=== PATIENT | female | born 1975 | race Caucasian/White ===

== ENCOUNTER 2016-08-11 10:46 | Outpatient (CLI) | payer MEDICAID ==
[~2016-08-11] VITALS: Ht 166.4 cm; Wt 99.7 kg
[2016-08-11 12:38] VITALS: Ht 166.4 cm; Wt 99.7 kg
[2016-08-11 12:40] VITALS: BP 135/72; PULSE 84; RESP 18
[2016-08-11] MEDS ORDERED: PRENAT PO (12:44)
[2016-08-11 12:45] LABS: ADD SCAN DIFF NO
[2016-08-11 13:00] LABS: HEMATOCRIT 35.6 % (37.0-47.0); LYMPHOCYTES % 15.2 % (15.0-51.0); MEAN CORPUSCULAR HEMOGLOBIN 30.8 pg (29.0-33.0); MEAN CORPUSCULAR HGB CONC 33.7 g/dl (32.0-37.0); MEAN CORPUSCULAR VOLUME 91.3 fl (82.0-101.0); MEAN PLATELET VOLUME 9.4 fl (7.4-10.4); NEUTROPHILS % 78.5 % (39.0-77.0); PLATELET COUNT 287 10^3/UL (140-415); RED CELL DISTRIBUTION WIDTH 13.7 % (11.5-14.5); WHITE BLOOD COUNT 10.6 10^3/ul (4.8-10.8)
[2016-08-11 13:01] LABS: BASOPHILS % 0.1 % (0.0-2.0); EOSINOPHILS # 0.2 10^3/ul (0.0-0.5); EOSINOPHILS % 1.4 % (0.0-7.0); LYMPHOCYTES # 1.6 10^3/ul (0.8-2.9); MONOCYTE # 0.5 10^3/ul (0.3-0.9); MONOCYTES % 4.6 % (0.0-11.0); NEUTROPHIL # 8.3 10^3/ul (1.6-7.5)
[2016-08-11 13:59] LABS: ADD UMIC NO; UR BILIRUBIN (Dip) NEGATIVE (NEGATIVE); UR BLOOD (Dip) NEGATIVE (NEGATIVE); UR CLARITY CLEAR (CLEAR); UR COLOR YELLOW (YELLOW); UR GLUCOSE (Dip) NEGATIVE (NEGATIVE); UR KETONES (Dip) NEGATIVE (NEGATIVE); UR LEUKOCYTE ESTERASE (Dip) NEGATIVE (NEGATIVE); UR NITRITE (Dip) NEGATIVE (NEGATIVE); UR TOTAL PROTEIN (Dip) NEGATIVE (NEGATIVE); UR UROBILINOGEN (Dip) 0.2 E.U./dL (0.1-1.0)
--- NOTE | 2016-08-11 14:28 | PN ---
Date/Time of Note Date/Time of Note DATE: 08/11/16 TIME: 14:17 OB Subjective Subjective Subjective Patient 3 para 2 at 29 +1 weeks of gestational Chief complaint of suprapubic pain and pelvic pain/pelvic pressure She reports positive movement, no leaking fluid no vaginal bleeding OB Objective Objective Objective NST is reactive Perla none HEENT: WNL Heart: Rhythm Normal Lungs: Clear Abdomen: WNL Extremities: Normal Heart Rate: 140's Accelerations: Accelerations Present Decelerations: No Decelerations Contractions on Admission: None OB Assessment/Plan Other Assessment: Rule out PTL Other plan: CBC & UA WNL OB ultrasound and cervical length Biophysical profile 8 out of 8 ONEIL 13.7 Estimated weight 1398 g Cervix 4.4 cm Discharge patient home Patient should follow up with OB in 2-3 days TOPHER ROBERTS MD Aug 11, 2016 14:27
--- NOTE | 2016-08-11 14:38 | RADRPT ---
PROCEDURE: OB ultrasound for biophysical profile CLINICAL INDICATION: labor. TECHNIQUE: Multiple sonographic images of the pelvis were obtained. Transabdominal view of the gr avid uterus are available for review. The images were reviewed on a PACS workstation. COMPARISON: Pelvic ultrasound 06/19/2016 FINDINGS: breathing movement = 2/2 tone = 2/2 motion = 2/2 ONEIL = 2/2 ONEIL = 13.7 cm Single live intrauterine with cardiac activity. heart rate equals 148 beats p er minute. Presentation is transverse maternal right. The placenta is posterior, grade 1. IMPRESSION: 1. Single viable intrauterine gestation. 2. Biophysical profile = 8/8. 3. ONEIL = 13.7 cm. RPTAT: KK .Javan Gray MD, MD Date Time Electronically viewed and signed by .Javan Gray MD, MD on 08/11/2016 14:38 .B/
--- NOTE | 2016-08-11 14:41 | RADRPT ---
PROCEDURE: US OB limited for size and dates. CLINICAL INDICATION: labor. TECHNIQUE: Multiple sonographic images of the pelvis were obtained. Transabdominal imaging only w as performed. The images were reviewed on a PACS workstation. COMPARISON: OB ultrasound 06/19/2016 FINDINGS: The cervix is closed with a length of 4.4 cm. There is a single viable intrauterine gestation. Cardiac activity is present with 143 beats per min haris. There is a transverse maternal right presentation. Measurements were made in order to determine age. The results are as follows: BPD = 7.1 cm HC = 26.5 cm AC = 26.2 cm FL = 5.4 .cm Estimated gestational age of approximately 29 weeks 1 day +/ - 2 weeks 0 days by ultrasound evaluat ion. The estimated date of delivery is 10/26/2016 by ultrasound evaluation. The EFW = 1398 g +/- 209.8 g. The placenta is posterior. IMPRESSION: 1. Single viable intrauterine gestation of approximately 29 weeks 1 day with estimated date of deli very of 10/26/2016 by ultrasound evaluation.. 2. The estimated date of delivery is 1398 g (49%). 3. Closed cervix with estimated length of 4.4 cm. RPTAT: KK .Javan Gray MD, Date Time Electronically viewed and signed by .Javan Gray MD, MD on 08/11/2016 14:40 .B/
--- NOTE | 2016-08-11 15:45 | TRIAGE ---
OB Triage Datetime Report Generated by CPN: 08/11/2016 15:45 Datetime: 08/11/2016 15:08 Stage of : OB Triage Labor Evaluation Frequency: NONE Monitor Mode: External Heart Rate FHR Baseline Rate: 135 Monitor Mode: External US Variability: Moderate 6-25 bpm Accelerations: 15X15 Decelerations: None Pain Assessment Pain Scale: 0 Pain Presence: None/Denies Pain Goal: 0 Pain Assessment Comments: STATES PAIN HAS STOPPED WITH REST-STATES PAIN DID STOP DURING THE NIGHT Vaginal Exam Membrane Status: Intact Datetime: 08/11/2016 15:01 Stage of : OB Triage Datetime: 08/11/2016 14:20 Stage of : OB Triage Labor Evaluation Frequency: NONE Monitor Mode: External Heart Rate FHR Baseline Rate: 135 Monitor Mode: External US Variability: Moderate 6-25 bpm Decelerations: None Vaginal Exam Membrane Status: Intact Datetime: 08/11/2016 14:12 Maternal Assessment Level of Consciousness: Fully Conscious DTR's/Clonus: DTRs 2+ Headache: Denies Blurred Vision: No Nausea/Vomiting: Denies RUQ Epigastric Pain: Denies Facial Edema: None Labor Evaluation Frequency: NONE Monitor Mode: External US Comments: OB SCAN COMPLETE-MONITORS REAPPLIED Pain Presence: None/Denies Pain Assessment Comments: PT STATES SHE NO LONGER HAS PAIN Vaginal Exam Membrane Status: Intact Datetime: 08/11/2016 13:56 Stage of : OB Triage Datetime: 08/11/2016 13:41 Comments: MONITOR OFF FOR US Datetime: 08/11/2016 13:36 Labor Evaluation Frequency: NONE Monitor Mode: External Heart Rate FHR Baseline Rate: 140 Monitor Mode: External US Variability: Moderate 6-25 bpm Decelerations: None Pain Presence: None/Denies Datetime: 08/11/2016 12:54 Stage of : OB Triage Labor Evaluation Frequency: NONE Monitor Mode: External Heart Rate FHR Baseline Rate: 140 Monitor Mode: External US Variability: Moderate 6-25 bpm Accelerations: 15X15 Decelerations: None Pain Assessment Pain Scale: 3 Pain Presence: Constant Pain Type: Pressure Pain Location: Perineum (Annotations: SUPRAPUBIC) Pain Goal: 0 Datetime: 08/11/2016 12:00 Stage of : OB Triage Labor Evaluation Frequency: NONE Monitor Mode: External Heart Rate FHR Baseline Rate: 140 Monitor Mode: External US Variability: Moderate 6-25 bpm Accelerations: 10X10 Decelerations: None Datetime: 08/11/2016 11:12 Stage of : OB Triage Assessment Type: Triage Maternal Assessment Level of Consciousness: Fully Conscious DTR's/Clonus: DTRs 2+; No Clonus Headache: Denies Blurred Vision: No Respiratory Effort: Unlabored; Regular Rhythm; Equal Expansion Breath Sounds, Left: Clear and Equal Breath Sounds, Right: Clear and Equal Nausea/Vomiting: Denies RUQ Epigastric Pain: Denies Lower Extremities Edema: None Degree: None Upper Extremities Edema: None Degree: None Facial Edema: None Temperature Route: Oral Fall Risk Assessment History of Falling: (0) No Secondary Diagnosis: (0) No Ambulatory Aid: (0) Bedrest/Nurse Assist IV Therapy: (0) No Gait: (0) Normal/Bedrest/Immobile Mental Status: (0) Oriented to Own Ability Fall Score: 0 Fall Risk Score Definition: No Risk: No action required Labor Evaluation Frequency: X 1 Monitor Mode: External Duration (sec)2399: 30 Quality: Mild Contraction Comments: PT DENIES FEELING UC Heart Rate FHR Baseline Rate: 130 Monitor Mode: External US Variability: Moderate 6-25 bpm Accelerations: 10X10 Decelerations: None Pain Assessment Pain Scale: 7 Pain Presence: Constant Pain Type: Pressure Pain Location: Abdomen; Perineum; Other (Annotations: SUPRAPUBIC) Pain Goal: 0 Vaginal Exam Membrane Status: Intact Datetime: 08/11/2016 11:10 EGA: 29.1 Time Provider Notified: 08/11/2016 11:40 Datetime: 08/11/2016 11:01 Heart Rate FHR Baseline Rate: 138 Monitor Mode: External US Datetime: 08/11/2016 11:00 Stage of : OB Triage Datetime: 08/11/2016 10:58 Monitor Mode: External Datetime: 08/11/2016 10:55 Stage of : OB Triage Time of Arrival: 08/11/2016 10:55 Arrived By: Ambulatory Arrived From: Home Movement: Present Contractions: Denies/Absent Rupture of Membranes: Denies Vaginal Bleeding: None Vaginal Discharge: Denies Recent Sexual Intercouse: Denies Abdominal Trauma: Not Applicable Patient Complaints: Other Additional Patient Complaints: SUPRAPUBIC _ PERINEAL PRESSURE X 3 DAYS WITH INCREASED FREQUENCY OF URINATIONSTATES AFTER VOIDING SHE STILL FEELS PRESSURE;HX DELIVERY X 2 BOTH BY SEC TION;STATES IN HER PERINEAL REGION IT FEELS LIKE 2 WIRES ARE THERE GIVING HER SHOCKS-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
== END 2016-08-11 15:20 | disposition home or self-care (01) ==
LOC: OBT 10:46 → L-D 10:47 → OBT 15:20
PROVIDERS: ATTEND Obstetrics & Gynecology
DX: O26.893 Other specified pregnancy related conditions, third trimester (principal); R10.2 Pelvic and perineal pain; O09.523 Supervision of elderly multigravida, third trimester; Z3A.29 29 weeks gestation of pregnancy
CPT/HCPCS: 36415; 76815; 76817; 76818; 81003; 85025; Z7500; G0463

== ENCOUNTER 2016-09-30 21:03 | Inpatient (IN) | payer MEDICAID ==
[~2016-09-30] VITALS: Ht 167.6 cm; Wt 102.8 kg
[~2016-09-30 21:03] MED LIST: PRENAT PO
[2016-09-30 21:15] VITALS: BP 129/60; PULSE 91; RESP 18; Ht 167.6 cm; Wt 102.8 kg
--- NOTE | 2016-09-30 22:34 | HP ---
Date/Time of Note Date/Time of Note DATE: 09/30/16 TIME: 22:31 OB - History Hx of Present Chief Complaint: contractions Estimated Due Date: Oct 26, 2016 : 5 Para: 2 Spontaneous : 2 Therapeutic : 0 Care: Good Care Ultrasounds: Normal mid trimester US Obstetrical Complications: None Medical Complications: None Past Family/Social History * Past Medical, Surgical, Family and Obstetric Histories reviewed from chart. OB Admission Exam Vital Signs Vital Signs Vital Signs Date Time Temp Pulse Resp B/P Pulse Ox O2 Delivery O2 Flow Rate FiO2 09/30/16 21:15 97.7 91 18 129/60 Room Air Physical Exam HEENT: WNL Heart: Rhythm Normal Lungs: Clear Abdomen: WNL Extremities: Normal Cervical Dilatation: None Membranes: Intact Heart Rate: 120's Accelerations: Accelerations Present Decelerations: No Decelerations Varibility: Moderate OB Assessment/Plan Reason for admission: labor Plan: Other Other plan: IV magnesium sulfate IM betamethasone URSULA DOMINGUEZ MD Sep 30, 2016 22:34
[2016-09-30] MEDS ORDERED: MAGNESIUM SULFATE 4 GM/100 ML 100 ML IV ONE (23:00)
[2016-09-30] MEDS ORDERED: AL HYDROX/MG HYDROX/SIMETH 30 ML CUP PO PRN (23:00)
[2016-09-30] MEDS ORDERED: ACETAMINOPHEN 325 MG TAB PO PRN (23:00)
[2016-09-30] MEDS: LACTATED RINGER'S 1,000 ML IV SCH (23:04)
[2016-09-30 23:11] LABS: ADD SCAN DIFF NO
[2016-09-30 23:14] LABS: BASOPHILS % 0.2 % (0.0-2.0); EOSINOPHILS # 0.4 10^3/ul (0.0-0.5); EOSINOPHILS % 3.9 % (0.0-7.0); HEMATOCRIT 35.6 % (37.0-47.0); HEMOGLOBIN 12.5 g/dl (12.0-16.0); LYMPHOCYTES % 17.8 % (15.0-51.0); MEAN CORPUSCULAR HEMOGLOBIN 31.7 pg (29.0-33.0); MEAN CORPUSCULAR HGB CONC 35.1 g/dl (32.0-37.0); MEAN CORPUSCULAR VOLUME 90.4 fl (82.0-101.0); MEAN PLATELET VOLUME 9.4 fl (7.4-10.4); MONOCYTE # 0.8 10^3/ul (0.3-0.9); MONOCYTES % 6.7 % (0.0-11.0); NEUTROPHIL # 8.1 10^3/ul (1.6-7.5); PLATELET COUNT 295 10^3/UL (140-415); RED BLOOD COUNT 3.94 10^6/ul (4.20-5.40); RED CELL DISTRIBUTION WIDTH 13.1 % (11.5-14.5); WHITE BLOOD COUNT 11.3 10^3/ul (4.8-10.8)
[2016-09-30 23:43] LABS: INR 0.95; PARTIAL THROMBOPLASTIN TIME 28.8 Sec (25.0-35.0); PROTIME 12.7 Sec (12.2-14.2)
[2016-09-30] MEDS: MAGNESIUM SULFATE 20 GM/500 ML 500 ML IV SCH (23:59)
[2016-10-01 00:02] LABS: ADD UMIC NO; UR BILIRUBIN (Dip) NEGATIVE (NEGATIVE); UR BLOOD (Dip) NEGATIVE (NEGATIVE); UR CLARITY CLEAR (CLEAR); UR COLOR LT. YELLOW (YELLOW); UR GLUCOSE (Dip) NEGATIVE (NEGATIVE); UR KETONES (Dip) NEGATIVE (NEGATIVE); UR LEUKOCYTE ESTERASE (Dip) NEGATIVE (NEGATIVE); UR NITRITE (Dip) NEGATIVE (NEGATIVE); UR TOTAL PROTEIN (Dip) NEGATIVE (NEGATIVE); UR UROBILINOGEN (Dip) 0.2 E.U./dL (0.1-1.0)
[2016-10-01] MEDS: BETAMET NA PHOS/AC(6 MG/ML) 5ML INJ IM SCH (00:58)
--- NOTE | 2016-10-01 01:21 | TRIAGE ---
OB Triage Datetime Report Generated by CPN: 10/01/2016 01:21 Datetime: 10/01/2016 00:27 Stage of : Antepartum Assessment Type: Ongoing Assessment Maternal Assessment Level of Consciousness: Fully Conscious DTR's/Clonus: DTRs 2+; No Clonus Headache: Denies Blurred Vision: No Respiratory Effort: Unlabored; Regular Rhythm; Equal Expansion Breath Sounds, Left: Clear and Equal Breath Sounds, Right: Clear and Equal Nausea/Vomiting: Denies RUQ Epigastric Pain: Denies Lower Extremities Edema: None Degree: None Upper Extremities Edema: None Degree: None Facial Edema: None Temperature Route: Oral Fall Risk Assessment History of Falling: (0) No Secondary Diagnosis: (0) No Ambulatory Aid: (0) Bedrest/Nurse Assist IV Therapy: (0) No Gait: (0) Normal/Bedrest/Immobile Mental Status: (0) Oriented to Own Ability Fall Score: 0 Fall Risk Score Definition: No Risk: No action required Pain Presence: None/Denies Datetime: 10/01/2016 00:03 Labor Evaluation Frequency: irregular Monitor Mode: External Duration (sec)2399: 50-70 Quality: Mild Pattern: Normal: <= 5 Contractions in 10 Minutes Resting Tone [place]: Relaxed Heart Rate FHR Baseline Rate: 135 Monitor Mode: External US FHR Baseline Changes: No Baseline Change Variability: Moderate 6-25 bpm Accelerations: 15X15 Decelerations: None Category: Category I Datetime: 09/30/2016 23:45 Time of Arrival: 09/30/2016 23:00 EGA: 36.2 Arrived By: Ambulatory Arrived From: Other Unit in Hospital Datetime: 09/30/2016 23:30 Labor Evaluation Frequency: irregular Monitor Mode: External Quality: Mild Pattern: Normal: <= 5 Contractions in 10 Minutes Resting Tone [place]: Relaxed Heart Rate FHR Baseline Rate: 135 Monitor Mode: External US FHR Baseline Changes: No Baseline Change Variability: Moderate 6-25 bpm Accelerations: 15X15 Decelerations: None Category: Category I Datetime: 09/30/2016 22:05 Labor Evaluation Frequency: 2-3 Monitor Mode: External Duration (sec)2399: 60-90 Quality: Mild Pattern: Normal: <= 5 Contractions in 10 Minutes Resting Tone [place]: Relaxed Heart Rate FHR Baseline Rate: 145 Monitor Mode: External US FHR Baseline Changes: No Baseline Change Variability: Moderate 6-25 bpm Accelerations: 15X15 Decelerations: None Category: Category I Datetime: 09/30/2016 21:26 Vaginal Exam Dilatation (cms): 0.0 Effacement (%): 0 Station: -4 Exam By: Stephon Vaginal Bleeding: None Cervix, Consistency: Firm Cervix, Position: Posterior Datetime: 09/30/2016 21:21 Stage of : OB Triage Time of Arrival: 09/30/2016 20:55 EGA: 36.2 Chief Complaint: uc's since 729 and back pain Movement: Present Contractions: Irregular Time Contractions Began: 09/30/2016 07:30 Contractions: q 5 min Rupture of Membranes: Denies Vaginal Bleeding: None Vaginal Discharge: Denies Recent Sexual Intercouse: Denies Abdominal Trauma: Not Applicable Patient Complaints: Contractions Time Provider Notified: 10/01/2016 21:30 Provider Notified: Dr Cifuentes Initial Plan: EFM,SVE Maternal Assessment Level of Consciousness: Fully Conscious DTR's/Clonus: DTRs 2+; No Clonus Headache: Denies Blurred Vision: No Respiratory Effort: Unlabored; Regular Rhythm; Equal Expansion Breath Sounds, Left: Clear and Equal Breath Sounds, Right: Clear and Equal Nausea/Vomiting: Denies RUQ Epigastric Pain: Denies Facial Edema: None Temperature Route: Axillary Fall Risk Assessment History of Falling: (0) No Secondary Diagnosis: (0) No Ambulatory Aid: (0) Bedrest/Nurse Assist IV Therapy: (0) No Gait: (0) Normal/Bedrest/Immobile Mental Status: (0) Oriented to Own Ability Fall Score: 0 Fall Risk Score Definition: No Risk: No action required Datetime: 09/30/2016 21:12 Labor Evaluation Frequency: x1 Monitor Mode: External Duration (sec)2399: 70 Quality: Mild Pattern: Normal: <= 5 Contractions in 10 Minutes Resting Tone [place]: Relaxed Heart Rate FHR Baseline Rate: 155 Monitor Mode: External US FHR Baseline Changes: No Baseline Change Variability: Moderate 6-25 bpm Accelerations: 15X15 Decelerations: None Category: Category I Pain Assessment Pain Scale: 8 Pain Presence: Intermittent Pain Type: Contraction Pain Location: Abdomen; Back Datetime: 08/11/2016 15:20 Stage of : OB Triage Time of Arrival: 09/30/2016 20:55 EGA: 36.2 Arrived By: Ambulatory Arrived From: Home Chief Complaint: uc's since 729 and back pain Movement: Present Contractions: Irregular Contractions: 5 minutes Rupture of Membranes: Denies Vaginal Bleeding: None Vaginal Discharge: Denies Recent Sexual Intercouse: Denies Abdominal Trauma: Not Applicable Patient Complaints: Contractions Datetime: 08/11/2016 11:12 Fall Score: 0 Fall Risk Score Definition: No Risk: No action required Datetime: 08/11/2016 11:10 EGA: 29.1
[2016-10-01] MEDS: MULTIVIT/MIN/FOLATE/IRON/PREN TAB PO SCH (08:59)
[2016-10-01] MEDS: LACTATED RINGER'S 1,000 ML IV SCH ×2 (09:00→22:39)
[2016-10-01] MEDS: MAGNESIUM SULFATE 20 GM/500 ML 500 ML IV SCH ×2 (09:04→19:30)
--- NOTE | 2016-10-01 14:50 | PN ---
Date/Time of Note Date/Time of Note DATE: 10/01/16 TIME: 14:47 OB Subjective Subjective Subjective Patient denies any vaginal bleeding, leaking of fluid. She reports 1-2 out of 10 cramps. Denies any other complaints. Reports good movement. OB Objective Objective Objective General appearance: Alert and oriented 4 patient does not appear to be any acute distress. Abdomen: Soft, gravid, fundal height consistent with gestational age NST: Category 1 Occasional rare contractions seen on the monitor Extremities: No calf tenderness, no click 1+ bilateral lower extremity edema, SCDs are in place. Hematology - 72 Hrs Test 09/30/16 22:56 White Blood Count 11.310^3/ul (4.8-10.8) H Red Blood Count 3.9410^6/ul (4.20-5.40) L Hemoglobin 12.5g/dl (12.0-16.0) Hematocrit 35.6% (37.0-47.0) L Mean Corpuscular Volume 90.4fl (82.0-101.0) Mean Corpuscular Hemoglobin 31.7pg (29.0-33.0) Mean Corpuscular Hemoglobin Concent 35.1g/dl (32.0-37.0) Red Cell Distribution Width 13.1% (11.5-14.5) Platelet Count 54379^3/UL (140-415) Mean Platelet Volume 9.4fl (7.4-10.4) Neutrophils % 71.0% (39.0-77.0) Lymphocytes % 17.8% (15.0-51.0) Monocytes % 6.7% (0.0-11.0) Eosinophils % 3.9% (0.0-7.0) Basophils % 0.2% (0.0-2.0) Nucleated Red Blood Cells % 0.0/100WBC (0.0-0.0) Neutrophils # 8.110^3/ul (1.6-7.5) H Lymphocytes # 2.010^3/ul (0.8-2.9) Monocytes # 0.810^3/ul (0.3-0.9) Eosinophils # 0.410^3/ul (0.0-0.5) Basophils # 0.010^3/ul (0.0-0.1) Nucleated Red Blood Cells # 0.010^3/ul (0.0-0.0) Chemistry Test 10/01/16 06:11 10/01/16 13:19 Magnesium Level 4.6mg/dl (1.7-2.5) H 5.1mg/dl (1.7-2.5) *H OB Assessment/Plan Other Assessment: Hospital day #2 Admitted for contractions IUP at 36 and 1 day History of section 2 Status post steroid 1 dose<24 hour. Due for second dose after midnight On magnesium for tocolysis Doing well No evidence of mag toxicity Mag level within normal limits Normal patellar reflexes Plan To receive second dose of steroid Wean her off after second dose of steroid Expectant management VIVIAN CAREY MD Oct 01, 2016 14:50
[2016-10-02] MEDS: BETAMET NA PHOS/AC(6 MG/ML) 5ML INJ IM SCH (00:57)
[2016-10-02] MEDS: MAGNESIUM SULFATE 20 GM/500 ML 500 ML IV SCH ×2 (05:43→15:30)
[2016-10-02] MEDS: MULTIVIT/MIN/FOLATE/IRON/PREN TAB PO SCH (09:09)
[2016-10-02] MEDS: LACTATED RINGER'S 1,000 ML IV SCH (09:10)
--- NOTE | 2016-10-02 23:52 | DS ---
Date/Time of Note Date/Time of Note DATE: 10/02/16 TIME: 23:48 Obstetrical Discharge Record Final Diagnosis Final Diagnosis: not delivered Other Final Diagnosis IUP 36w4d s/p x2 betamethasone s/p magnesium sulfate in one hr will be done PTL resolved Complications Labor Augmentation: No Induction: No Tocolytics: Magnesium Sulfate Rupture of Membranes: No Condition on Discharge Physical Assessment Last Vitals: VSS aferile EFM no uterine activities Voiding: Yes Bowel Movement: Yes Breast: Soft, non-tender Calf Tenderness: No Patient Condition: Stable DENISE GARG MD Oct 02, 2016 23:52
--- NOTE | 2016-10-02 23:55 | PD.PPDC ---
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
[2016-10-03] MEDS: LACTATED RINGER'S 1,000 ML IV SCH (04:27)
--- NOTE | 2016-10-03 08:57 | RADRPT ---
PROCEDURE: OB ultrasound for biophysical profile CLINICAL INDICATION: Deceleration TECHNIQUE: Multiple sonographic images of the pelvis were obtained. Transabdominal views of the g ravid uterus are available for review. The images were reviewed on a PACS workstation. COMPARISON: None FINDINGS: breathing movement = 2/2 tone = 2/2 motion = 2/2 ONEIL = 2/2 ONEIL = 15.1 cm Single live intrauterine with cardiac activity of 134 bpm. position is cephal ic. The placenta is posterior. IMPRESSION: 1. Single live intrauterine gestation. 2. Biophysical profile = 8/8. 3. ONEIL = 15.1 cm. RPTAT: HH .Nhung Jain MD, MD Date Time Electronically viewed and signed by .Nhung Jain MD, on 10/03/2016 08:57 .G/
[2016-10-03] MEDS: MULTIVIT/MIN/FOLATE/IRON/PREN TAB PO SCH (09:51)
--- NOTE | 2016-10-03 10:21 | QN ---
Documentation Comment Pt. doing well vss heart tracing category 1 s/p beta methasone and magnesium no change in cervix. BPP today due to variable decleration and d/c home SHARON WAGGONER MD Oct 03, 2016 10:21
== END 2016-10-03 10:10 | disposition home or self-care (01) | DRG 780 ==
LOC: OBT 21:03 → L-D 21:04 → OBT 22:05 → L-D 22:05 → OBG 10-01 00:18
PROVIDERS: ADMIT Obstetrics & Gynecology; ATTEND Obstetrics & Gynecology
DX: O47.03 False labor before 37 completed weeks of gestation, third trimester (principal); Z3A.36 36 weeks gestation of pregnancy
CPT/HCPCS: 36415; 76818; 81003; 83735; 85025; 85610; 85730; 86850; 86900; 86901; 87086; 96360; 96365; G0463; J0702; J3475; J7120

== ENCOUNTER 2016-10-04 23:00 | Outpatient (CLI) | payer MEDICAID ==
[~2016-10-04] VITALS: Ht 167.6 cm; Wt 104.7 kg
[2016-10-05 02:07] VITALS: Ht 167.6 cm; Wt 104.7 kg
--- NOTE | 2016-10-05 02:07 | PN ---
Triage Information Date/Time 10/05/16, 1:30am Weeks of Gestation 37 wks : 5 Para: 2 Diabetes: none Diabetes management: diet controlled Hypertention: none Objective Heart Rate: 130's Contractions: >10 Minutes Apart Assessment/Plan 41 yo P2022@ 37 wks, previous c/d x 2, came to r/o labor - reassuring status - 1/long/posterior; not aidan regularly -will recheck in 2hrs, if unchanged, d/c home -sono to check fluid, BPP, placentation BUSHRA TALAMANTES MD Oct 05, 2016 01:40
[2016-10-05 02:09] VITALS: BP 120/65; PULSE 65; RESP 18
--- NOTE | 2016-10-05 02:51 | RADRPT ---
PROCEDURE: OB ultrasound for biophysical profile CLINICAL INDICATION: Contractions. TECHNIQUE: Multiple sonographic images of the gravid uterus performed. The images were reviewed on a PACS workstation. COMPARISON: 10/03/2016 FINDINGS: A single live intrauterine is identified with heart rate of 154 bpm. Fet us is in a cephalic presentation. Placenta is located posteriorly. Biophysical profile: breathing movement = 2/2 tone = 2/2 motion = 2/2 ONEIL = 2/2 ONEIL = 9.6 cm. IMPRESSION: 1. Single live intrauterine gestation. 2. Biophysical profile = 8/8. 3. ONEIL = 9.6 cm. RPTAT: HMVK .Rafi Moy MD, Date Time Electronically viewed and signed by .Rafi Moy MD, on 10/05/2016 02:51 .K/
--- NOTE | 2016-10-05 07:45 | TRIAGE ---
OB Triage Datetime Report Generated by CPN: 10/05/2016 07:44 Datetime: 10/05/2016 04:00 Labor Evaluation Frequency: IRREGULAR Monitor Mode: External Duration (sec)2399: 60-80 Quality: Mild Pattern: Normal: <= 5 Contractions in 10 Minutes Resting Tone [place]: Relaxed Heart Rate FHR Baseline Rate: 145 Monitor Mode: External US FHR Baseline Changes: No Baseline Change Variability: Moderate 6-25 bpm Accelerations: 15X15 Decelerations: None Category: Category I Datetime: 10/05/2016 02:33 Labor Evaluation Frequency: 2-5 Monitor Mode: External Duration (sec)2399: 60-80 Quality: Mild Pattern: Normal: <= 5 Contractions in 10 Minutes Resting Tone [place]: Relaxed Heart Rate FHR Baseline Rate: 145 Monitor Mode: External US FHR Baseline Changes: No Baseline Change Variability: Moderate 6-25 bpm Accelerations: 15X15 Decelerations: None Category: Category I Datetime: 10/05/2016 02:00 Labor Evaluation Frequency: IRREGULAR Monitor Mode: External Duration (sec)2399: 60-120 Quality: Mild Pattern: Normal: <= 5 Contractions in 10 Minutes Resting Tone [place]: Relaxed Heart Rate FHR Baseline Rate: 145 Monitor Mode: External US FHR Baseline Changes: No Baseline Change Variability: Moderate 6-25 bpm Accelerations: 15X15 Decelerations: None Category: Category I Datetime: 10/05/2016 01:00 Labor Evaluation Frequency: IRREGULAR Monitor Mode: External Duration (sec)2399: 60 Quality: Mild Pattern: Normal: <= 5 Contractions in 10 Minutes Resting Tone [place]: Relaxed Heart Rate FHR Baseline Rate: 145 Monitor Mode: External US FHR Baseline Changes: No Baseline Change Variability: Moderate 6-25 bpm Accelerations: 15X15 Decelerations: None Category: Category I Vaginal Exam Dilatation (cms): 1.0 Effacement (%): 50 Station: -3 Exam By: A LIDIA RN Vaginal Bleeding: None Cervix, Consistency: Firm Cervix, Position: Posterior Datetime: 10/05/2016 00:00 Stage of : OB Triage Labor Evaluation Frequency: 0 Monitor Mode: External Heart Rate FHR Baseline Rate: 135 Monitor Mode: External US FHR Baseline Changes: No Baseline Change Variability: Moderate 6-25 bpm Accelerations: 15X15 Decelerations: None Datetime: 10/04/2016 23:00 Stage of : OB Triage Assessment Type: Triage Time of Arrival: 10/04/2016 22:03 EGA: 36.6 Arrived By: Ambulatory Arrived From: Home Chief Complaint: CONTRACTIONS Time Provider Notified: 10/05/2016 00:08 Provider Notified: DR TALAMANTES Initial Plan: CALL MD Shanon Maternal Assessment Level of Consciousness: Fully Conscious DTR's/Clonus: DTRs 2+; No Clonus Headache: Denies Blurred Vision: No Respiratory Effort: Unlabored; Regular Rhythm; Equal Expansion Breath Sounds, Left: Clear and Equal Breath Sounds, Right: Clear and Equal Nausea/Vomiting: Denies RUQ Epigastric Pain: Denies Lower Extremities Edema: None Degree: None Upper Extremities Edema: None Degree: None Facial Edema: None Temperature Route: Oral Fall Risk Assessment History of Falling: (0) No Secondary Diagnosis: (0) No Ambulatory Aid: (0) Bedrest/Nurse Assist IV Therapy: (0) No Gait: (0) Normal/Bedrest/Immobile Mental Status: (0) Oriented to Own Ability Fall Score: 0 Fall Risk Score Definition: No Risk: No action required Monitor Mode: External Monitor Mode: External US Pain Assessment Pain Scale: 6 Pain Presence: Intermittent Pain Type: Contraction Pain Location: Abdomen; Back Datetime: 10/03/2016 10:00 Stage of : Antepartum Datetime: 10/03/2016 09:32 Comments: PT TOOK OFF EFM Datetime: 10/03/2016 08:30 Stage of : Antepartum Labor Evaluation Frequency: 0 Monitor Mode: External Resting Tone [place]: Relaxed Heart Rate FHR Baseline Rate: 135 Monitor Mode: External US Variability: Moderate 6-25 bpm Accelerations: 15X15 Decelerations: None Category: Category I Pain Assessment Pain Scale: 0 Pain Presence: None/Denies Pain Type: N/A Pain Goal: 0 Datetime: 10/03/2016 08:08 Assessment Type: Ongoing Assessment Maternal Assessment Level of Consciousness: Fully Conscious DTR's/Clonus: DTRs 1+ Headache: Denies Blurred Vision: No Respiratory Effort: Unlabored Breath Sounds, Left: Clear and Equal Breath Sounds, Right: Clear and Equal Nausea/Vomiting: Denies RUQ Epigastric Pain: Denies Lower Extremities Edema: None Degree: None Upper Extremities Edema: None Degree: None Facial Edema: None Fall Risk Assessment History of Falling: (0) No Secondary Diagnosis: (0) No Ambulatory Aid: (0) Bedrest/Nurse Assist IV Therapy: (20) Yes Gait: (0) Normal/Bedrest/Immobile Mental Status: (0) Oriented to Own Ability Fall Score: 20 Fall Risk Score Definition: No Risk: No action required Datetime: 10/03/2016 08:00 Stage of : Antepartum Temperature Route: Oral Labor Evaluation Frequency: 0 Monitor Mode: External Resting Tone [place]: Relaxed Heart Rate FHR Baseline Rate: 135 Monitor Mode: External US Variability: Moderate 6-25 bpm Accelerations: 15X15 Decelerations: None Category: Category I Pain Assessment Pain Scale: 0 Pain Presence: None/Denies Pain Type: N/A Pain Goal: 0 Datetime: 10/03/2016 06:49 Stage of : Antepartum Labor Evaluation Frequency: x1 Monitor Mode: External Duration (sec)2399: 60 Quality: Mild Pattern: Normal: <= 5 Contractions in 10 Minutes Resting Tone [place]: Relaxed Heart Rate FHR Baseline Rate: 135 Monitor Mode: External US Variability: Moderate 6-25 bpm Accelerations: 15X15 Decelerations: None Category: Category I Pain Assessment Pain Scale: 0 Pain Presence: None/Denies Pain Type: N/A Pain Goal: 0 Datetime: 10/03/2016 05:53 Stage of : Antepartum Labor Evaluation Frequency: 0 Monitor Mode: External Duration (sec)2399: 0 Pattern: Normal: <= 5 Contractions in 10 Minutes Resting Tone [place]: Relaxed Heart Rate FHR Baseline Rate: 145 Monitor Mode: External US Variability: Moderate 6-25 bpm Accelerations: 15X15 Decelerations: None Category: Category I Datetime: 10/03/2016 05:15 Headache: Denies Blurred Vision: No Facial Edema: None Datetime: 10/03/2016 03:58 Stage of : Antepartum Labor Evaluation Frequency: x1 Monitor Mode: External Duration (sec)2399: 90 Quality: Mild Pattern: Normal: <= 5 Contractions in 10 Minutes Resting Tone [place]: Relaxed Heart Rate FHR Baseline Rate: 145 Monitor Mode: External US Variability: Moderate 6-25 bpm Accelerations: 15X15 Decelerations: Late Datetime: 10/03/2016 03:00 Stage of : Antepartum Labor Evaluation Frequency: x1 Monitor Mode: External Duration (sec)2399: 80 Quality: Mild Pattern: Normal: <= 5 Contractions in 10 Minutes Resting Tone [place]: Relaxed Heart Rate FHR Baseline Rate: 145 Monitor Mode: External US Variability: Moderate 6-25 bpm Accelerations: 15X15 Decelerations: Late Category: Category II Pain Assessment Pain Scale: 0 Pain Presence: None/Denies Pain Type: N/A Pain Goal: 0 Pain Relief Measures: Comfort Measures Datetime: 10/03/2016 02:00 Labor Evaluation Frequency: x1 Monitor Mode: External Duration (sec)2399: 130 Quality: Mild Pattern: Normal: <= 5 Contractions in 10 Minutes Resting Tone [place]: Relaxed Heart Rate FHR Baseline Rate: 140 Monitor Mode: External US Variability: Moderate 6-25 bpm Accelerations: 10X10 Decelerations: None Category: Category I Pain Assessment Pain Scale: 0 Pain Presence: None/Denies Pain Type: N/A Pain Goal: 0 Datetime: 10/03/2016 01:00 Stage of : Antepartum Maternal Assessment Level of Consciousness: Fully Conscious DTR's/Clonus: DTRs 2+; No Clonus Headache: Denies Breath Sounds, Left: Clear and Equal Breath Sounds, Right: Clear and Equal Nausea/Vomiting: Denies RUQ Epigastric Pain: Denies Labor Evaluation Frequency: x1 Monitor Mode: External Duration (sec)2399: 50 Quality: Mild Pattern: Normal: <= 5 Contractions in 10 Minutes Resting Tone [place]: Relaxed Heart Rate FHR Baseline Rate: 140 Monitor Mode: External US Variability: Moderate 6-25 bpm Accelerations: 10X10 Decelerations: None Category: Category I Pain Assessment Pain Scale: 0 Pain Presence: None/Denies Pain Type: N/A Pain Goal: 0 Pain Relief Measures: Comfort Measures Datetime: 10/03/2016 00:00 Stage of : Antepartum Labor Evaluation Frequency: 0 Monitor Mode: External Duration (sec)2399: 0 Pattern: Normal: <= 5 Contractions in 10 Minutes Resting Tone [place]: Relaxed Contraction Comments: uterine irritiability noted. uterus soft upon palpating. Heart Rate FHR Baseline Rate: 135 Monitor Mode: External US Variability: Moderate 6-25 bpm Accelerations: 15X15 Decelerations: None Pain Assessment Pain Scale: 0 Pain Presence: None/Denies Pain Type: N/A Pain Goal: 0 Datetime: 10/02/2016 23:31 Stage of : Antepartum Datetime: 10/02/2016 23:13 Maternal Assessment Level of Consciousness: Fully Conscious DTR's/Clonus: DTRs 2+; No Clonus Headache: Denies Blurred Vision: No Respiratory Effort: Unlabored Breath Sounds, Left: Clear and Equal Breath Sounds, Right: Clear and Equal Nausea/Vomiting: Denies RUQ Epigastric Pain: Denies Facial Edema: None Datetime: 10/02/2016 23:00 Stage of : Antepartum Labor Evaluation Frequency: x1 Monitor Mode: External Duration (sec)2399: 50 Quality: Mild Pattern: Normal: <= 5 Contractions in 10 Minutes Resting Tone [place]: Relaxed Heart Rate FHR Baseline Rate: 135 Monitor Mode: External US Variability: Moderate 6-25 bpm Accelerations: 15X15 Decelerations: None Datetime: 10/02/2016 22:00 Labor Evaluation Frequency: x2 Monitor Mode: External Duration (sec)2399: 50-60 Quality: Mild Pattern: Normal: <= 5 Contractions in 10 Minutes Resting Tone [place]: Relaxed Contraction Comments: uterine irritiability noted. pts denies feeling UC's or cramping. Heart Rate FHR Baseline Rate: 130 Monitor Mode: External US Variability: Moderate 6-25 bpm Accelerations: 15X15 Decelerations: None Category: Category I Pain Assessment Pain Scale: 0 Pain Presence: None/Denies Pain Type: N/A Pain Goal: 0 Datetime: 10/02/2016 21:24 Maternal Assessment Level of Consciousness: Fully Conscious DTR's/Clonus: DTRs 1+; No Clonus Headache: Denies Blurred Vision: No Nausea/Vomiting: Denies RUQ Epigastric Pain: Denies Facial Edema: None Datetime: 10/02/2016 21:23 Contraction Comments: pt's hands resting on toco, informed pt importance of monitoring for UC's an d requested she not place hands or arms directly on toco. Datetime: 10/02/2016 21:00 Stage of : Antepartum Labor Evaluation Frequency: x1 Monitor Mode: External Duration (sec)2399: 70 Quality: Mild Pattern: Normal: <= 5 Contractions in 10 Minutes Resting Tone [place]: Relaxed Heart Rate FHR Baseline Rate: 135 Monitor Mode: External US Variability: Moderate 6-25 bpm Accelerations: 10X10 Decelerations: None Datetime: 10/02/2016 20:00 Labor Evaluation Frequency: 0 Monitor Mode: External Duration (sec)2399: 0 Pattern: Normal: <= 5 Contractions in 10 Minutes Resting Tone [place]: Relaxed Heart Rate FHR Baseline Rate: 130 Monitor Mode: External US Variability: Moderate 6-25 bpm Accelerations: 10X10 Decelerations: None Pain Assessment Pain Scale: 0 Pain Presence: None/Denies Pain Type: N/A Pain Goal: 0 Datetime: 10/02/2016 19:40 Assessment Type: Ongoing Assessment Maternal Assessment Level of Consciousness: Fully Conscious Respiratory Effort: Unlabored Breath Sounds, Left: Clear and Equal Breath Sounds, Right: Clear and Equal Nausea/Vomiting: Denies RUQ Epigastric Pain: Denies Lower Extremities Edema: None Degree: None Upper Extremities Edema: None Degree: None Facial Edema: None Fall Risk Assessment History of Falling: (0) No Secondary Diagnosis: (0) No Ambulatory Aid: (0) Bedrest/Nurse Assist IV Therapy: (20) Yes Gait: (0) Normal/Bedrest/Immobile Mental Status: (0) Oriented to Own Ability Fall Score: 20 Fall Risk Score Definition: No Risk: No action required Datetime: 10/02/2016 19:39 Maternal Assessment Level of Consciousness: Fully Conscious DTR's/Clonus: DTRs 1+; No Clonus Headache: Denies Blurred Vision: No Nausea/Vomiting: Denies RUQ Epigastric Pain: Denies Facial Edema: None Datetime: 10/02/2016 19:00 Labor Evaluation Frequency: 0 Monitor Mode: External Duration (sec)2399: 0 Pattern: Normal: <= 5 Contractions in 10 Minutes Resting Tone [place]: Relaxed Contraction Comments: DENIES FEELING ANY UC'S. ABDOMEN SOFT TO PALPATION Heart Rate FHR Baseline Rate: 130 Monitor Mode: External US FHR Baseline Changes: No Baseline Change Variability: Moderate 6-25 bpm Accelerations: 15X15 Decelerations: None Category: Category I Datetime: 10/02/2016 17:59 Maternal Assessment Level of Consciousness: Fully Conscious DTR's/Clonus: DTRs 1+; No Clonus Headache: Denies Blurred Vision: No Respiratory Effort: Unlabored Breath Sounds, Left: Clear and Equal Breath Sounds, Right: Clear and Equal Nausea/Vomiting: Denies RUQ Epigastric Pain: Denies Facial Edema: None Comments: DIFFICULT TO ADJUST MONITOR. PT SITTING UP IN BED Datetime: 10/02/2016 17:52 Comments: PT SITTING UP IN BED EATING DINNER Datetime: 10/02/2016 17:30 Labor Evaluation Frequency: 0 Monitor Mode: External Duration (sec)2399: 0 Pattern: Normal: <= 5 Contractions in 10 Minutes Resting Tone [place]: Relaxed Heart Rate FHR Baseline Rate: 135 Monitor Mode: External US FHR Baseline Changes: No Baseline Change Variability: Moderate 6-25 bpm Accelerations: 15X15 Decelerations: None Category: Category I Datetime: 10/02/2016 17:00 Labor Evaluation Frequency: 0 Monitor Mode: External Duration (sec)2399: 0 Pattern: Normal: <= 5 Contractions in 10 Minutes Resting Tone [place]: Relaxed Heart Rate FHR Baseline Rate: 135 Monitor Mode: External US FHR Baseline Changes: No Baseline Change Variability: Moderate 6-25 bpm Accelerations: 15X15 Decelerations: None Category: Category I Datetime: 10/02/2016 16:30 Labor Evaluation Frequency: OCCASIONAL Monitor Mode: External Duration (sec)2399: 40-70 Pattern: Normal: <= 5 Contractions in 10 Minutes Contraction Comments: PT MOVING AROUND ALOT. PT DENIES FEELING ANY UC'S. ABDOMEN SOFT TO PALPATIO N Heart Rate FHR Baseline Rate: 135 Monitor Mode: External US Accelerations: 15X15 Comments: PT MOVING AROUND ALOT. SCATTERED CONTACT AT TIMES Datetime: 10/02/2016 15:59 Labor Evaluation Frequency: OCCASIONAL Monitor Mode: External Duration (sec)2399: 60-80 Pattern: Normal: <= 5 Contractions in 10 Minutes Contraction Comments: PT DENIES ANY CONTRACTIONS Heart Rate FHR Baseline Rate: 130 Monitor Mode: External US FHR Baseline Changes: No Baseline Change Variability: Moderate 6-25 bpm Accelerations: 15X15 Decelerations: None Category: Category I Datetime: 10/02/2016 15:30 Labor Evaluation Frequency: 0 Monitor Mode: External Duration (sec)2399: 0 Pattern: Normal: <= 5 Contractions in 10 Minutes Resting Tone [place]: Relaxed Contraction Comments: DENIES FEELING ANY UC'S. ABDOMEN SOFT TO PALPATION Heart Rate FHR Baseline Rate: 125 Monitor Mode: External US FHR Baseline Changes: No Baseline Change Variability: Moderate 6-25 bpm Accelerations: 15X15 Decelerations: None Category: Category I Datetime: 10/02/2016 15:00 Labor Evaluation Frequency: 0 Monitor Mode: External Duration (sec)2399: 0 Pattern: Normal: <= 5 Contractions in 10 Minutes Resting Tone [place]: Relaxed Contraction Comments: DENIES FEELING ANY UC'S. ABDOMEN SOFT TO PALPATION Heart Rate FHR Baseline Rate: 120 Monitor Mode: External US FHR Baseline Changes: No Baseline Change Variability: Moderate 6-25 bpm Accelerations: 15X15 Decelerations: None Category: Category I Datetime: 10/02/2016 13:49 Maternal Assessment Level of Consciousness: Fully Conscious DTR's/Clonus: DTRs 1+; No Clonus Headache: Denies Blurred Vision: No Respiratory Effort: Unlabored Breath Sounds, Left: Clear and Equal Breath Sounds, Right: Clear and Equal Nausea/Vomiting: Denies RUQ Epigastric Pain: Denies Facial Edema: None Datetime: 10/02/2016 13:48 Labor Evaluation Frequency: 0 Monitor Mode: External Duration (sec)2399: 0 Pattern: Normal: <= 5 Contractions in 10 Minutes Contraction Comments: DENIES FEELING ANY UC'S. ABDOMEN SOFT TO PALPAION. SCATTERED IRRITABILITY NOTED. PT MOVES AROUND ALOT AND GETS OOB TO THE BR Heart Rate FHR Baseline Rate: 120 Monitor Mode: External US FHR Baseline Changes: No Baseline Change Variability: Moderate 6-25 bpm Accelerations: 15X15 Decelerations: None Category: Category I Datetime: 10/02/2016 12:32 Labor Evaluation Frequency: 0 Monitor Mode: External Duration (sec)2399: 0 Pattern: Normal: <= 5 Contractions in 10 Minutes Contraction Comments: DENIES ANY UC'S. ABODMEN SOFT TO PALPATION. PT KEEPS MOVING AROUND. Heart Rate FHR Baseline Rate: 130 Monitor Mode: External US FHR Baseline Changes: No Baseline Change Variability: Moderate 6-25 bpm Accelerations: 15X15 Decelerations: None Category: Category I Comments: PT KEEPS MOVING AROUND AND GETTING OOB. CONTINUOUSLY READJUSTING MONITOR Datetime: 10/02/2016 12:00 Breath Sounds, Left: Clear and Equal Breath Sounds, Right: Clear and Equal Pain Presence: None/Denies Pain Type: N/A Datetime: 10/02/2016 11:54 Maternal Assessment Level of Consciousness: Fully Conscious DTR's/Clonus: DTRs 1+; No Clonus Headache: Denies Blurred Vision: No Nausea/Vomiting: Denies RUQ Epigastric Pain: Denies Facial Edema: None Labor Evaluation Frequency: 0 Monitor Mode: External Duration (sec)2399: 0 Pattern: Normal: <= 5 Contractions in 10 Minutes Resting Tone [place]: Relaxed Contraction Comments: NONE NOTED. SOME SCATTERED IRRITABILITY NOTED Heart Rate FHR Baseline Rate: 130 Monitor Mode: External US FHR Baseline Changes: No Baseline Change Variability: Moderate 6-25 bpm Accelerations: 15X15 Decelerations: None Category: Category I Datetime: 10/02/2016 11:00 Labor Evaluation Frequency: 0 Monitor Mode: External Duration (sec)2399: 0 Pattern: Normal: <= 5 Contractions in 10 Minutes Resting Tone [place]: Relaxed Contraction Comments: SOMETIMES IRRITABILITY NOTED. PT MOVES AROUND ALOT IN BED AND GETS UP TO TH E BATHROOM Heart Rate FHR Baseline Rate: 130 Monitor Mode: External US FHR Baseline Changes: No Baseline Change Variability: Moderate 6-25 bpm Accelerations: 15X15 Decelerations: None Category: Category I Datetime: 10/02/2016 10:34 Labor Evaluation Frequency: 2 NOTED Monitor Mode: External Duration (sec)2399: 60-80 Pattern: Normal: <= 5 Contractions in 10 Minutes Resting Tone [place]: Non Relaxed Contraction Comments: DENIES FEELING ANY UC'S Heart Rate FHR Baseline Rate: 135 Monitor Mode: External US FHR Baseline Changes: No Baseline Change Variability: Moderate 6-25 bpm Accelerations: 15X15 Decelerations: None Category: Category I Datetime: 10/02/2016 09:56 Maternal Assessment Level of Consciousness: Fully Conscious DTR's/Clonus: DTRs 1+; No Clonus Headache: Denies Blurred Vision: No Nausea/Vomiting: Denies RUQ Epigastric Pain: Denies Facial Edema: None Labor Evaluation Frequency: 0 Monitor Mode: External Duration (sec)2399: 0 Pattern: Normal: <= 5 Contractions in 10 Minutes Contraction Comments: PT MOVING AROUND. STILL DENIES ANY UC'S. ABDOMEN SOFT TO PALPATION Heart Rate FHR Baseline Rate: 130 Monitor Mode: External US FHR Baseline Changes: No Baseline Change Variability: Moderate 6-25 bpm Accelerations: 15X15 Decelerations: None Category: Category I Datetime: 10/02/2016 09:29 Labor Evaluation Frequency: ONE NOTED IN 30 MIN Monitor Mode: External Duration (sec)2399: 130 Pattern: Normal: <= 5 Contractions in 10 Minutes Resting Tone [place]: Relaxed Contraction Comments: PT DENIES FEELING ANY UC'S. SITTING UP IN BED EATING BREAKFAST. SCATTERED IRRITABILITY NOTED Heart Rate FHR Baseline Rate: 130 Monitor Mode: External US FHR Baseline Changes: No Baseline Change Variability: Moderate 6-25 bpm Accelerations: 15X15 Decelerations: None Category: Category I Datetime: 10/02/2016 08:57 Labor Evaluation Frequency: 0 Monitor Mode: External Duration (sec)2399: 0 Pattern: Normal: <= 5 Contractions in 10 Minutes Resting Tone [place]: Relaxed Heart Rate FHR Baseline Rate: 125 Monitor Mode: External US FHR Baseline Changes: No Baseline Change Variability: Moderate 6-25 bpm Accelerations: 15X15 Decelerations: None Category: Category I Datetime: 10/02/2016 08:29 Labor Evaluation Frequency: 0 Monitor Mode: External Duration (sec)2399: 0 Pattern: Normal: <= 5 Contractions in 10 Minutes Heart Rate FHR Baseline Rate: 120 Comments: DIIFICULT TO MONITOR AT TIMES Datetime: 10/02/2016 07:56 Maternal Assessment Level of Consciousness: Fully Conscious DTR's/Clonus: DTRs 1+; No Clonus Headache: Denies Blurred Vision: No Nausea/Vomiting: Denies RUQ Epigastric Pain: Denies Facial Edema: None Labor Evaluation Frequency: 0 Monitor Mode: External Duration (sec)2399: 0 Pattern: Normal: <= 5 Contractions in 10 Minutes Resting Tone [place]: Relaxed Contraction Comments: DENIES FEELING ANY UC;S. ABDOMEN SOFT TO PALPATION Heart Rate FHR Baseline Rate: 120 Monitor Mode: External US FHR Baseline Changes: No Baseline Change Variability: Moderate 6-25 bpm Accelerations: 15X15 Decelerations: None Category: Category I Datetime: 10/02/2016 07:28 Assessment Type: Ongoing Assessment Maternal Assessment Level of Consciousness: Fully Conscious DTR's/Clonus: DTRs 1+; No Clonus Headache: Denies Blurred Vision: No Respiratory Effort: Unlabored; Regular Rhythm; Equal Expansion Breath Sounds, Left: Clear and Equal Breath Sounds, Right: Clear and Equal Nausea/Vomiting: Denies RUQ Epigastric Pain: Denies Lower Extremities Edema: None Degree: None Upper Extremities Edema: None Degree: None Facial Edema: None Fall Risk Assessment History of Falling: (0) No Secondary Diagnosis: (0) No Ambulatory Aid: (0) Bedrest/Nurse Assist IV Therapy: (20) Yes Gait: (0) Normal/Bedrest/Immobile Mental Status: (0) Oriented to Own Ability Fall Score: 20 Fall Risk Score Definition: No Risk: No action required Datetime: 10/02/2016 07:26 Headache: Denies Blurred Vision: No RUQ Epigastric Pain: Denies Pain Presence: None/Denies Pain Type: N/A Datetime: 10/02/2016 07:00 Stage of : Antepartum Labor Evaluation Frequency: OCC Monitor Mode: External Duration (sec)2399: 60 Quality: Mild Resting Tone [place]: Relaxed Contraction Comments: IRRITABILITY NOTED W/ PT'S MOVEMENT Heart Rate FHR Baseline Rate: 120 Monitor Mode: External US Variability: Moderate 6-25 bpm Accelerations: 15X15 Decelerations: None Category: Category I Datetime: 10/02/2016 06:18 Comments: loss of contact pt changed positions Pain Assessment Pain Scale: 0 Pain Presence: None/Denies Pain Type: N/A Pain Goal: 0 Pain Assessment Comments: PT DENIES FEELING PAIN, UC'S OR CRAMPING Datetime: 10/02/2016 06:00 Stage of : Antepartum Labor Evaluation Frequency: x3 Monitor Mode: External Duration (sec)2399: 40-70 Quality: Mild Resting Tone [place]: Relaxed Contraction Comments: irritability noted Heart Rate FHR Baseline Rate: 125 Monitor Mode: External US Variability: Moderate 6-25 bpm Accelerations: 15X15 Decelerations: Variable Category: Category II Datetime: 10/02/2016 05:41 Assessment Type: Ongoing Assessment Headache: Frontal Datetime: 10/02/2016 05:00 Stage of : Antepartum Labor Evaluation Frequency: IRREG Monitor Mode: External Duration (sec)2399: 50-110 Quality: Mild Resting Tone [place]: Relaxed Contraction Comments: IRRITABILITY NOTED W/ PT'S MOVEMENTS Heart Rate FHR Baseline Rate: 130 Monitor Mode: External US Variability: Moderate 6-25 bpm Accelerations: 15X15 Decelerations: None Category: Category I Datetime: 10/02/2016 04:28 Assessment Type: Ongoing Assessment Maternal Assessment Level of Consciousness: Fully Conscious DTR's/Clonus: DTRs 1+; No Clonus Headache: Denies Blurred Vision: No Nausea/Vomiting: Denies RUQ Epigastric Pain: Denies Lower Extremities Edema: None Degree: None Upper Extremities Edema: None Degree: None Facial Edema: None Datetime: 10/02/2016 04:00 Stage of : Antepartum Labor Evaluation Frequency: IRREG Monitor Mode: External Duration (sec)2399: 40-100 Quality: Mild Resting Tone [place]: Relaxed Contraction Comments: PT DENIES UC'S; IRRITABILITY NOTED W/ PT'S MOVEMENTS Heart Rate FHR Baseline Rate: 130 Monitor Mode: External US Variability: Moderate 6-25 bpm Accelerations: 15X15 Decelerations: None Category: Category I Datetime: 10/02/2016 03:00 Stage of : Antepartum Maternal Assessment Level of Consciousness: Fully Conscious DTR's/Clonus: DTRs 1+; No Clonus Headache: Denies Blurred Vision: No Breath Sounds, Left: Clear and Equal Breath Sounds, Right: Clear and Equal Nausea/Vomiting: Denies RUQ Epigastric Pain: Denies Lower Extremities Edema: None Degree: None Upper Extremities Edema: None Degree: None Facial Edema: None Labor Evaluation Frequency: 0 Monitor Mode: External Resting Tone [place]: Relaxed Contraction Comments: irritability Heart Rate FHR Baseline Rate: 125 Monitor Mode: External US Variability: Moderate 6-25 bpm Accelerations: 15X15 Decelerations: None Category: Category I Datetime: 10/02/2016 02:42 Monitor Mode: Palpation Resting Tone [place]: Relaxed Datetime: 10/02/2016 02:00 Stage of : Antepartum Labor Evaluation Frequency: x1 Monitor Mode: External Duration (sec)2399: 70 Quality: Mild Resting Tone [place]: Relaxed Heart Rate FHR Baseline Rate: 120 Monitor Mode: External US Variability: Moderate 6-25 bpm Accelerations: 15X15 Decelerations: None Category: Category I Datetime: 10/02/2016 01:04 Maternal Assessment Level of Consciousness: Fully Conscious DTR's/Clonus: DTRs 1+; No Clonus Headache: Denies Blurred Vision: No Nausea/Vomiting: Denies RUQ Epigastric Pain: Denies Lower Extremities Edema: None Degree: None Upper Extremities Edema: None Degree: None Facial Edema: None Datetime: 10/02/2016 01:00 Labor Evaluation Frequency: x2 Monitor Mode: External Duration (sec)2399: 60-140 Quality: Mild Resting Tone [place]: Relaxed Contraction Comments: irritability noted Heart Rate FHR Baseline Rate: 125 Monitor Mode: External US Variability: Moderate 6-25 bpm Accelerations: 15X15 Decelerations: None Category: Category I Pain Assessment Pain Scale: 0 Pain Presence: None/Denies Pain Type: N/A Pain Goal: 0 Datetime: 10/02/2016 00:57 Stage of : Antepartum Datetime: 10/02/2016 00:39 Temperature Route: Oral Pain Assessment Pain Scale: 0 Pain Presence: None/Denies Pain Type: N/A Pain Goal: 0 Datetime: 10/02/2016 00:38 Monitor Mode: Palpation Resting Tone [place]: Relaxed Datetime: 10/02/2016 00:00 Labor Evaluation Frequency: x2 Monitor Mode: External Duration (sec)2399: 40-60 Quality: Mild Resting Tone [place]: Relaxed Heart Rate FHR Baseline Rate: 135 Monitor Mode: External US Variability: Moderate 6-25 bpm Accelerations: 10X10 Decelerations: None Category: Category I Pain Presence: None/Denies Pain Type: N/A Datetime: 10/01/2016 23:00 Stage of : Antepartum Labor Evaluation Frequency: X1 Monitor Mode: External Duration (sec)2399: 10 Quality: Mild Resting Tone [place]: Relaxed Heart Rate FHR Baseline Rate: 120 Monitor Mode: External US Variability: Moderate 6-25 bpm Accelerations: 15X15 Decelerations: None Category: Category I Datetime: 10/01/2016 22:58 Maternal Assessment Level of Consciousness: Fully Conscious DTR's/Clonus: DTRs 1+; No Clonus Headache: Denies Blurred Vision: No Breath Sounds, Left: Clear and Equal Breath Sounds, Right: Clear and Equal Nausea/Vomiting: Denies RUQ Epigastric Pain: Denies Lower Extremities Edema: None Degree: None Upper Extremities Edema: None Degree: None Facial Edema: None Datetime: 10/01/2016 22:08 Pain Assessment Pain Scale: 0 Pain Presence: None/Denies Pain Type: N/A Pain Goal: 0 Datetime: 10/01/2016 22:00 Stage of : Antepartum Monitor Mode: External Resting Tone [place]: Relaxed Contraction Comments: IRRITABILITY Heart Rate FHR Baseline Rate: 120 Monitor Mode: External US Variability: Moderate 6-25 bpm Accelerations: 15X15 Decelerations: None Category: Category I Datetime: 10/01/2016 21:00 Stage of : Antepartum Maternal Assessment Level of Consciousness: Fully Conscious DTR's/Clonus: DTRs 1+; No Clonus Headache: Denies Blurred Vision: No Nausea/Vomiting: Denies RUQ Epigastric Pain: Denies Lower Extremities Edema: None Degree: None Upper Extremities Edema: None Degree: None Facial Edema: None Labor Evaluation Frequency: x2 Monitor Mode: External Duration (sec)2399: 30-130 Quality: Mild Resting Tone [place]: Relaxed Heart Rate FHR Baseline Rate: 130 Monitor Mode: External US Variability: Moderate 6-25 bpm Accelerations: 15X15 Decelerations: None Category: Category I Datetime: 10/01/2016 20:21 Comments: loss of contact d/t pt's position Datetime: 10/01/2016 20:00 Stage of : Antepartum Labor Evaluation Frequency: x2 Monitor Mode: External Duration (sec)2399: 70 Quality: Mild Resting Tone [place]: Relaxed Contraction Comments: irritability noted; pt denies UC's Heart Rate FHR Baseline Rate: 130 Monitor Mode: External US Variability: Minimal - Undetectable to <=5 bpm (Annotations: PERIOD OF MODERATE VARIABILITY ) Accelerations: 15X15 Decelerations: None Datetime: 10/01/2016 19:34 Assessment Type: Ongoing Assessment Maternal Assessment Level of Consciousness: Fully Conscious DTR's/Clonus: DTRs 1+; No Clonus Headache: Denies Blurred Vision: No Respiratory Effort: Unlabored; Regular Rhythm; Equal Expansion Breath Sounds, Left: Clear and Equal Breath Sounds, Right: Clear and Equal Nausea/Vomiting: Denies RUQ Epigastric Pain: Denies Lower Extremities Edema: None Degree: None Upper Extremities Edema: None Degree: None Facial Edema: None Temperature Route: Oral Fall Risk Assessment History of Falling: (0) No Secondary Diagnosis: (0) No Ambulatory Aid: (0) Bedrest/Nurse Assist IV Therapy: (20) Yes Gait: (0) Normal/Bedrest/Immobile Mental Status: (0) Oriented to Own Ability Fall Score: 20 Fall Risk Score Definition: No Risk: No action required Pain Assessment Pain Scale: 0 Pain Presence: None/Denies Pain Type: N/A Pain Goal: 0 Datetime: 10/01/2016 19:15 Stage of : Antepartum Datetime: 10/01/2016 19:00 Stage of : Antepartum Maternal Assessment Level of Consciousness: Fully Conscious DTR's/Clonus: DTRs 1+ Headache: Denies Blurred Vision: No Breath Sounds, Left: Clear and Equal; Diminished Breath Sounds, Right: Clear and Equal; Diminished Nausea/Vomiting: Denies RUQ Epigastric Pain: Denies Facial Edema: None Labor Evaluation Frequency: NONE Monitor Mode: External Resting Tone [place]: Relaxed Heart Rate FHR Baseline Rate: 130 Monitor Mode: External US FHR Baseline Changes: No Baseline Change Variability: Moderate 6-25 bpm Accelerations: 15X15 Decelerations: None Category: Category I Pain Assessment Pain Scale: 2 Pain Presence: Intermittent Pain Type: Cramping Pain Location: Abdomen Pain Goal: 3 Datetime: 10/01/2016 18:00 Stage of : Antepartum Maternal Assessment Level of Consciousness: Fully Conscious DTR's/Clonus: DTRs 1+ Headache: Denies Blurred Vision: No Nausea/Vomiting: Denies RUQ Epigastric Pain: Denies Facial Edema: None Comments: PT TOOK TOO LONG TO FINISH HER SHOWER. Datetime: 10/01/2016 17:00 Stage of : Antepartum Maternal Assessment Level of Consciousness: Fully Conscious DTR's/Clonus: DTRs 1+ Headache: Denies Blurred Vision: No Breath Sounds, Left: Clear and Equal; Diminished Breath Sounds, Right: Clear and Equal; Diminished Nausea/Vomiting: Denies RUQ Epigastric Pain: Denies Facial Edema: None Labor Evaluation Frequency: 2 IN AN HOUR Monitor Mode: External Duration (sec)2399: 60-70 Quality: Mild Pattern: Normal: <= 5 Contractions in 10 Minutes Resting Tone [place]: Relaxed Heart Rate FHR Baseline Rate: 130 FHR Baseline Changes: No Baseline Change Variability: Moderate 6-25 bpm Accelerations: 15X15 Decelerations: None Category: Category I Pain Assessment Pain Scale: 2 Pain Presence: Intermittent Pain Type: Cramping; Contraction Pain Location: Abdomen Pain Goal: 3 Pain Relief Measures: Comfort Measures Datetime: 10/01/2016 16:00 Stage of : Antepartum Maternal Assessment Level of Consciousness: Fully Conscious DTR's/Clonus: DTRs 1+ Headache: Denies Blurred Vision: No Breath Sounds, Left: Clear and Equal; Diminished Breath Sounds, Right: Clear and Equal; Diminished Nausea/Vomiting: Denies RUQ Epigastric Pain: Denies Facial Edema: None Labor Evaluation Frequency: 5 IN AN HOUR Monitor Mode: External Duration (sec)2399: 50-80 Quality: Mild Pattern: Normal: <= 5 Contractions in 10 Minutes Resting Tone [place]: Relaxed Heart Rate FHR Baseline Rate: 130 FHR Baseline Changes: No Baseline Change Variability: Moderate 6-25 bpm Accelerations: 15X15 Decelerations: None Category: Category I Pain Assessment Pain Scale: 3 Pain Presence: Intermittent Pain Type: Cramping; Contraction Pain Location: Abdomen Pain Goal: 3 Pain Relief Measures: Comfort Measures Datetime: 10/01/2016 15:00 Stage of : Antepartum Maternal Assessment Level of Consciousness: Fully Conscious DTR's/Clonus: DTRs 1+ Headache: Denies Blurred Vision: No Breath Sounds, Left: Clear and Equal; Diminished Breath Sounds, Right: Clear and Equal; Diminished Nausea/Vomiting: Denies RUQ Epigastric Pain: Denies Facial Edema: None Labor Evaluation Frequency: 3 IN AN HOUR Monitor Mode: External Duration (sec)2399: 50-70 Quality: Mild Pattern: Normal: <= 5 Contractions in 10 Minutes Resting Tone [place]: Relaxed Heart Rate FHR Baseline Rate: 130 FHR Baseline Changes: No Baseline Change Variability: Moderate 6-25 bpm Accelerations: 10X10 Decelerations: None Category: Category I Pain Assessment Pain Scale: 2 Pain Presence: Intermittent Pain Type: Cramping; Contraction Pain Location: Abdomen Pain Goal: 3 Pain Relief Measures: Comfort Measures Datetime: 10/01/2016 14:00 Stage of : Antepartum Maternal Assessment Level of Consciousness: Fully Conscious DTR's/Clonus: DTRs 1+ Headache: Denies Blurred Vision: No Breath Sounds, Left: Clear and Equal; Diminished Breath Sounds, Right: Clear and Equal; Diminished Nausea/Vomiting: Denies RUQ Epigastric Pain: Denies Facial Edema: None Labor Evaluation Frequency: 4 IN AN HOUR Monitor Mode: External Duration (sec)2399: 40-60 Quality: Mild Pattern: Normal: <= 5 Contractions in 10 Minutes Resting Tone [place]: Relaxed Heart Rate FHR Baseline Rate: 140 FHR Baseline Changes: No Baseline Change Variability: Moderate 6-25 bpm Accelerations: 15X15 Decelerations: Variable Category: Category I Pain Assessment Pain Scale: 2 Pain Presence: Intermittent Pain Type: Cramping; Contraction Pain Location: Abdomen Pain Goal: 3 Pain Relief Measures: Comfort Measures Datetime: 10/01/2016 13:00 Stage of : Antepartum Breath Sounds, Left: Clear and Equal; Diminished Breath Sounds, Right: Clear and Equal; Diminished Labor Evaluation Frequency: 3 IN AN HOUR Monitor Mode: External Duration (sec)2399: 50-70 Quality: Mild Pattern: Normal: <= 5 Contractions in 10 Minutes Resting Tone [place]: Relaxed Heart Rate FHR Baseline Rate: 135 FHR Baseline Changes: No Baseline Change Variability: Moderate 6-25 bpm Accelerations: 15X15 Decelerations: None Category: Category I Pain Assessment Pain Scale: 3 Pain Presence: Intermittent Pain Type: Cramping; Contraction Pain Location: Abdomen Pain Goal: 3 Pain Relief Measures: Comfort Measures Datetime: 10/01/2016 12:00 Stage of : Antepartum Maternal Assessment Level of Consciousness: Fully Conscious DTR's/Clonus: DTRs 1+ Headache: Denies Blurred Vision: No Breath Sounds, Left: Clear and Equal; Diminished Breath Sounds, Right: Clear and Equal; Diminished Nausea/Vomiting: Denies RUQ Epigastric Pain: Denies Facial Edema: None Labor Evaluation Frequency: 4 IN AN HOUR Monitor Mode: External Duration (sec)2399: 40-60 Quality: Mild Pattern: Normal: <= 5 Contractions in 10 Minutes Resting Tone [place]: Relaxed Heart Rate FHR Baseline Rate: 140 FHR Baseline Changes: No Baseline Change Variability: Moderate 6-25 bpm Accelerations: 15X15 Decelerations: None Category: Category I Pain Assessment Pain Scale: 3 Pain Presence: Intermittent Pain Type: Cramping; Stabbing Pain Location: Abdomen Pain Goal: 3 Pain Relief Measures: Comfort Measures Datetime: 10/01/2016 11:00 Maternal Assessment Level of Consciousness: Fully Conscious DTR's/Clonus: DTRs 1+ Headache: Denies Blurred Vision: No Breath Sounds, Left: Clear and Equal; Diminished Breath Sounds, Right: Clear and Equal; Diminished Nausea/Vomiting: Denies RUQ Epigastric Pain: Denies Facial Edema: None Labor Evaluation Frequency: 3 IN AN HOUR Monitor Mode: External Duration (sec)2399: 40-60 Quality: Mild Pattern: Normal: <= 5 Contractions in 10 Minutes Resting Tone [place]: Relaxed Heart Rate FHR Baseline Rate: 140 FHR Baseline Changes: No Baseline Change Variability: Moderate 6-25 bpm Accelerations: 10X10 Decelerations: None Category: Category I Pain Assessment Pain Scale: 2 Pain Presence: Intermittent Pain Type: Cramping; Contraction Pain Location: Abdomen Pain Goal: 3 Pain Relief Measures: Comfort Measures Datetime: 10/01/2016 10:00 Stage of : Antepartum Maternal Assessment Level of Consciousness: Fully Conscious DTR's/Clonus: DTRs 1+ Headache: Denies Blurred Vision: No Nausea/Vomiting: Denies RUQ Epigastric Pain: Denies Facial Edema: None Labor Evaluation Frequency: NONE Monitor Mode: External Resting Tone [place]: Relaxed Comments: UNABLE TO GET TRACING PT IS SITTING UP AND EATING BREAKFAST. Pain Assessment Pain Scale: 2 Pain Presence: Intermittent Pain Type: Cramping; Contraction Pain Location: Abdomen Pain Goal: 3 Pain Relief Measures: Comfort Measures Datetime: 10/01/2016 09:00 Stage of : Antepartum Maternal Assessment Level of Consciousness: Fully Conscious DTR's/Clonus: DTRs 1+ Headache: Denies Blurred Vision: No Nausea/Vomiting: Denies RUQ Epigastric Pain: Denies Facial Edema: None Labor Evaluation Frequency: 5 IN AN HOUR Monitor Mode: External Quality: Mild Pattern: Normal: <= 5 Contractions in 10 Minutes Resting Tone [place]: Relaxed Heart Rate FHR Baseline Rate: 135 FHR Baseline Changes: No Baseline Change Variability: Moderate 6-25 bpm Accelerations: 15X15 Decelerations: None Category: Category I Pain Assessment Pain Scale: 2 Pain Presence: Intermittent Pain Type: Cramping; Contraction Pain Location: Abdomen Pain Goal: 3 Pain Relief Measures: Comfort Measures Datetime: 10/01/2016 08:59 Stage of : Antepartum Datetime: 10/01/2016 08:00 Maternal Assessment Level of Consciousness: Fully Conscious DTR's/Clonus: DTRs 1+ Headache: Denies Blurred Vision: No Breath Sounds, Left: Clear and Equal Breath Sounds, Right: Clear and Equal Nausea/Vomiting: Denies RUQ Epigastric Pain: Denies Facial Edema: None Labor Evaluation Frequency: 3 IN AN HOUR Monitor Mode: External Duration (sec)2399: 40-60 Quality: Mild Pattern: Normal: <= 5 Contractions in 10 Minutes Resting Tone [place]: Relaxed Heart Rate FHR Baseline Rate: 135 FHR Baseline Changes: No Baseline Change Variability: Moderate 6-25 bpm Accelerations: 10X10 Decelerations: None Category: Category I Pain Assessment Pain Scale: 2 Pain Presence: Intermittent Pain Type: Cramping; Contraction Pain Location: Abdomen Pain Goal: 3 Pain Relief Measures: Comfort Measures Datetime: 10/01/2016 07:35 Assessment Type: Ongoing Assessment Maternal Assessment Level of Consciousness: Fully Conscious DTR's/Clonus: DTRs 2+; No Clonus Headache: Denies Blurred Vision: No Respiratory Effort: Unlabored; Regular Rhythm; Equal Expansion Breath Sounds, Left: Clear and Equal Breath Sounds, Right: Clear and Equal Nausea/Vomiting: Denies RUQ Epigastric Pain: Denies Lower Extremities Edema: None Degree: None Upper Extremities Edema: None Degree: None Facial Edema: None Fall Risk Assessment History of Falling: (0) No Secondary Diagnosis: (0) No Ambulatory Aid: (0) Bedrest/Nurse Assist IV Therapy: (0) No Gait: (0) Normal/Bedrest/Immobile Mental Status: (0) Oriented to Own Ability Fall Score: 0 Fall Risk Score Definition: No Risk: No action required Datetime: 10/01/2016 07:24 Stage of : Antepartum Datetime: 10/01/2016 07:00 Labor Evaluation Frequency: x1 Monitor Mode: External Duration (sec)2399: 50 Quality: Mild Resting Tone [place]: Relaxed Heart Rate FHR Baseline Rate: 135 Monitor Mode: External US Variability: Moderate 6-25 bpm Accelerations: 10X10 Decelerations: None Category: Category I Pain Presence: None/Denies Datetime: 10/01/2016 06:00 Maternal Assessment Level of Consciousness: Fully Conscious DTR's/Clonus: DTRs 2+ Headache: Denies Blurred Vision: No Respiratory Effort: Unlabored; Regular Rhythm; Equal Expansion Breath Sounds, Left: Clear and Equal Breath Sounds, Right: Clear and Equal Nausea/Vomiting: Denies RUQ Epigastric Pain: Denies Facial Edema: None Labor Evaluation Frequency: x2 Monitor Mode: External Duration (sec)2399: 40-50 Quality: Mild Resting Tone [place]: Relaxed Heart Rate FHR Baseline Rate: 135 Monitor Mode: External US Variability: Moderate 6-25 bpm Accelerations: 10X10 Decelerations: None Category: Category I Pain Presence: None/Denies Pain Type: N/A Datetime: 10/01/2016 05:50 Stage of : Antepartum Datetime: 10/01/2016 05:00 Labor Evaluation Frequency: 0 Monitor Mode: External Resting Tone [place]: Relaxed Heart Rate FHR Baseline Rate: 140 Monitor Mode: External US Variability: Moderate 6-25 bpm Accelerations: 15X15 Decelerations: None Category: Category I Comments: loss of contact at times. Pain Presence: None/Denies Datetime: 10/01/2016 04:00 Labor Evaluation Frequency: x2 Monitor Mode: External Duration (sec)2399: 40-50 Quality: Mild Resting Tone [place]: Relaxed Heart Rate FHR Baseline Rate: 135 Monitor Mode: External US Variability: Moderate 6-25 bpm Accelerations: 10X10 Decelerations: None Category: Category I Pain Presence: None/Denies Pain Type: N/A Datetime: 10/01/2016 02:59 Labor Evaluation Frequency: occasional Monitor Mode: External Duration (sec)2399: 40-50 Quality: Mild Resting Tone [place]: Relaxed Heart Rate FHR Baseline Rate: 140 Monitor Mode: External US Variability: Moderate 6-25 bpm Accelerations: 15X15 Decelerations: None Category: Category I Pain Presence: None/Denies Pain Type: N/A Datetime: 10/01/2016 02:39 Maternal Assessment Level of Consciousness: Fully Conscious DTR's/Clonus: DTRs 2+ Headache: Denies Blurred Vision: No Datetime: 10/01/2016 02:00 Labor Evaluation Frequency: x5 Monitor Mode: External Duration (sec)2399: 40-60 Quality: Mild Resting Tone [place]: Relaxed Heart Rate FHR Baseline Rate: 135 Monitor Mode: External US Variability: Moderate 6-25 bpm Accelerations: 15X15 Decelerations: None Category: Category I Pain Presence: None/Denies Pain Type: N/A Datetime: 10/01/2016 01:00 Labor Evaluation Frequency: IRREGULAR Monitor Mode: External Duration (sec)2399: 40-50 Quality: Mild Resting Tone [place]: Relaxed Contraction Comments: PT DENIES FEELING UC'S. Heart Rate FHR Baseline Rate: 140 Monitor Mode: External US Variability: Moderate 6-25 bpm Accelerations: 15X15 Decelerations: None Category: Category I Pain Presence: None/Denies Datetime: 10/01/2016 00:27 Fall Score: 0 Fall Risk Score Definition: No Risk: No action required Datetime: 09/30/2016 23:45 EGA: 36.2 Datetime: 09/30/2016 23:31 Monitor Mode: External Resting Tone [place]: Relaxed Heart Rate FHR Baseline Rate: 135 Monitor Mode: External US Pain Assessment Pain Scale: 3 Pain Presence: Intermittent Pain Type: Cramping Pain Location: Abdomen Datetime: 09/30/2016 22:05 Stage of : OB Triage Datetime: 09/30/2016 21:29 Stage of : OB Triage Datetime: 09/30/2016 21:21 EGA: 36.2 Fall Score: 0 Fall Risk Score Definition: No Risk: No action required Datetime: 08/11/2016 15:20 EGA: 36.2 Datetime: 08/11/2016 11:12 Fall Score: 0 Fall Risk Score Definition: No Risk: No action required Datetime: 08/11/2016 11:10 EGA: 29.1
--- NOTE | 2016-10-05 07:50 | TRIAGE ---
OB Triage Datetime Report Generated by CPN: 10/05/2016 07:50 Datetime: 10/05/2016 01:20 Stage of : OB Triage Datetime: 10/04/2016 23:00 EGA: 36.6 Fall Score: 0 Fall Risk Score Definition: No Risk: No action required
== END 2016-10-05 05:22 | disposition home or self-care (01) ==
LOC: OBT 23:00 → L-D 10-05 00:39 → OBT 10-05 05:22
PROVIDERS: ATTEND Obstetrics & Gynecology
DX: O24.913 Unspecified diabetes mellitus in pregnancy, third trimester (principal); O62.9 Abnormality of forces of labor, unspecified; Z3A.37 37 weeks gestation of pregnancy
CPT/HCPCS: 76818; Z7500; G0463

== ENCOUNTER 2016-10-12 13:30 | Outpatient (CLI) | payer MEDICAID ==
[2016-10-12 13:53] VITALS: BP 136/70; PULSE 77; RESP 18
--- NOTE | 2016-10-12 15:11 | RADRPT ---
PROCEDURE: OB ultrasound CLINICAL INDICATION: Pelvic pain TECHNIQUE: Multiple transverse and longitudinal OB images of the pelvis were obtained. The images were reviewed on a high-resolution PACS workstation. COMPARISON: 10/05/2016 FINDINGS: A single live intrauterine is seen. The presentation is vertex. The placenta is grade II and posterior in location. No evidence of placenta abruption or previa is seen. The heart rate is 158 beats per minute. The amniotic fluid index is 12.1 cm. movement 2 tone 2 breathing 2 Amniotic fluid 2 IMPRESSION: Biophysical profile of 11/25. RPTAT: HPNM Physician Zoila Date Time Electronically viewed and signed by Physician Zoila on 10/12/2016 15:10 /
--- NOTE | 2016-10-12 15:55 | QN ---
Documentation Comment iup 38 weeks co of ucx vss exam wnl os closed cat I tracing ap oup 38 weeks false labor [facility] JACOBY BORDEN MD Oct 12, 2016 15:55
== END 2016-10-12 16:10 | disposition home or self-care (01) ==
LOC: OBT 13:30 → L-D 13:31 → OBT 16:10
PROVIDERS: ATTEND Obstetrics & Gynecology
DX: O62.9 Abnormality of forces of labor, unspecified (principal); O47.1 False labor at or after 37 completed weeks of gestation; Z3A.38 38 weeks gestation of pregnancy
CPT/HCPCS: 76818; Z7500; G0463

== ENCOUNTER 2016-10-15 15:30 | Inpatient (IN) | payer MEDICAID ==
[~2016-10-15] VITALS: Ht 162.6 cm; Wt 105.4 kg
[2016-10-20 07:02] VITALS: BMI 39.9
[2016-10-20 07:04] VITALS: Ht 162.6 cm; Wt 105.4 kg
[2016-10-20] MEDS ORDERED: CEFAZOLIN 2 GM/50 ML (PMX) 50 ML IV SCH (07:30)
[2016-10-20] MEDS ORDERED: METHYLERGONOVINE 0.2 MG INJ IM PRN ×2 (07:30→21:00)
[2016-10-20] MEDS ORDERED: MISOPROSTOL 200 MCG TAB PR PRN ×2 (07:30→21:00)
[2016-10-20] MEDS ORDERED: CARBOPROST 250 MCG INJ IM PRN ×2 (07:30→21:00)
[2016-10-20] MEDS ORDERED: OXYTOCIN 30 UNITS/LR 500 ML IV PRN ×2 (07:30→21:00)
[2016-10-20] MEDS: LACTATED RINGER'S 1,000 ML IV SCH ×3 (08:07→20:34)
[2016-10-20 08:26] LABS: ADD SCAN DIFF NO
[2016-10-20 08:31] LABS: BASOPHILS % 0.3 % (0.0-2.0); EOSINOPHILS # 0.3 10^3/ul (0.0-0.5); EOSINOPHILS % 2.9 % (0.0-7.0); HEMATOCRIT 37.2 % (37.0-47.0); HEMOGLOBIN 12.8 g/dl (12.0-16.0); LYMPHOCYTES # 1.8 10^3/ul (0.8-2.9); LYMPHOCYTES % 18.9 % (15.0-51.0); MEAN CORPUSCULAR HEMOGLOBIN 31.3 pg (29.0-33.0); MEAN CORPUSCULAR HGB CONC 34.4 g/dl (32.0-37.0); MEAN PLATELET VOLUME 9.7 fl (7.4-10.4); MONOCYTE # 0.6 10^3/ul (0.3-0.9); MONOCYTES % 5.7 % (0.0-11.0); NEUTROPHILS % 71.9 % (39.0-77.0); PLATELET COUNT 266 10^3/UL (140-415); RED BLOOD COUNT 4.09 10^6/ul (4.20-5.40); RED CELL DISTRIBUTION WIDTH 13.1 % (11.5-14.5); WHITE BLOOD COUNT 9.8 10^3/ul (4.8-10.8)
[2016-10-20 08:47] LABS: INR 0.87; PARTIAL THROMBOPLASTIN TIME 27.5 Sec (25.0-35.0); PROTIME 11.8 Sec (12.2-14.2); PT RATIO 0.9
[2016-10-20] MEDS ORDERED: ONDANSETRON 4 MG INJ ONE (14:25)
[2016-10-20] MEDS ORDERED: OXYTOCIN 30 UNITS/LR 500 ML IV ONE (14:25)
[2016-10-20] MEDS ORDERED: EPHEDrine SULFATE 50 MG/5 ML SYG ONE (14:25)
[2016-10-20] MEDS ORDERED: morphine SULFATE/PF (10 MG/10 ML) INJ ONE (14:25)
[2016-10-20] MEDS ORDERED: OXYTOCIN 10 UNIT INJ ONE (14:25)
[2016-10-20] MEDS ORDERED: METOCLOPRAMIDE 10 MG INJ ONE (14:25)
--- NOTE | 2016-10-20 15:24 | HP ---
Date/Time of Note Date/Time of Note DATE: 10/20/16 TIME: 15:23 OB - History Hx of Present Free Text/Dictation term preg. for repeat c/s and BTL Care: Good Care Ultrasounds: Normal mid trimester US Obstetrical Complications: None Past Family/Social History * Past Medical, Surgical, Family and Obstetric Histories reviewed from chart. OB Admission Exam Physical Exam HEENT: WNL Heart: Rhythm Normal Lungs: Clear, Equal Abdomen: WNL Extremities: Normal Reflexes: Normal Cervical Dilatation: None Last 72 hours Lab Results CBC & BMP 10/20/16 08:00 OB Assessment/Plan Reason for admission: section Plan: Section SHARON WAGGONER MD Oct 20, 2016 15:24
--- NOTE | 2016-10-20 15:29 | OPR ---
Operative Report Planned Procedure Free Text/Dictation term preg, repeat c/s and BTL Procedure date Oct 20, 2016 Procedure(s) repeat c/s, lysis of adhesions, bilateral tubal ligaion Performed by: SHARON WAGGONER MD Assisting provider: JACOBY BORDEN MD Anesthesia Type: spinal Procedure Description Under satisfactory spinal anesthesia, the patient was prepped and draped and placed in a supine position, tilted to the left. Pfannenstiel incision was made , carried through the subcutaneous tissue. Bleeders brought under control with electrocautery. Fascia incised to the length of the incision. Rectus muscles from the fascia, divided midline. Peritoneum exposed, entered through a transverse incision. Exploration of abdomen revealed gravid uterus and multiple omental adhesions to the lower uterine segment and fallopian ubes. The adhesions were dissected out and o plain tie was used fo hemostasis. Bladder flap was developed. Transverse incision was made in the lower segment of the uterus. Amniotic sac ruptured. Clear amniotic fluid noted. The baby was delivered cephalically and the nasal oropharyngeal suction was performed. The baby was handed to the team for immediate attention. The placenta was delivered manually intact. Uterine cavity was cleaned with wet sponge and drainage established. Uterus closed in 2 layers using one monocryl in continuous fashion. Peritoneal cavity irrigated with warm saline. Sponge, needle and instrument count reported to be correct. Rectus muscle approximated with one monocryl and the lysis of adhesions hemostasis was confimred again. Fascia closed with one monocryl, and skin closed with larissa. Estimated blood loss 700mL. Post-Procedure Findings: Live Baby [], Apgars [] and [], weight [], position [], [] presentation []cord. Specimen removed: Yes Complications: None Pt Condition post procedure: stable Physician Certification I, the undersigned physician, hereby certify that I have discussed the procedure described in this consent form with this patient (or the patient's legal sales representative publications), including: * The risk and benefits of the procedure; * Any adverse reactions that may reasonably be expected to occur; * Any alternative efficacious methods of treatment which may be medically viable ; * The potential problems that may occur during recuperation; * Potential for blood transfusion and associated risks/benefits; and * Any research or economic interest I may have regarding this treatment. I further certify that the patient/legally responsible person was encouraged to ask question and that all questions were answered. SHARON WAGGONER MD Oct 20, 2016 15:29
[2016-10-20] MEDS: OXYTOCIN 30 UNITS/LR 500 ML IV SCH ×3 (15:32→22:19)
[2016-10-20] MEDS ORDERED: NALOXONE (0.4 MG/ML) INJ IV PRN (16:00)
[2016-10-20] MEDS ORDERED: KETOROLAC 30 MG INJ IV PRN (16:00)
[2016-10-20] MEDS ORDERED: morphine 2 MG INJ IV PRN ×2 (16:00)
[2016-10-20] MEDS ORDERED: ONDANSETRON 4 MG INJ IV PRN (16:00)
[2016-10-20] MEDS ORDERED: EPHEDrine SULFATE 50 MG/5 ML SYG IV PRN (16:00)
[2016-10-20] MEDS ORDERED: HYDROmorphONE 1 MG/ML SYG IV PRN ×2 (16:00)
[2016-10-20] MEDS ORDERED: DIPHENHYDRAMINE 50 MG INJ IV PRN (16:00)
[2016-10-20] MEDS ORDERED: morphine SULFATE/PF (10 MG/10 ML) INJ SPINAL ONE (16:00)
[2016-10-20 20:30] VITALS: BP 125/69; PULSE 69; RESP 18
[2016-10-20] MEDS ORDERED: NA PHOSPHATE/BIPHOS 133 ML ENEMA PR PRN (21:00)
[2016-10-20] MEDS ORDERED: ACETAMINOPHEN/CODEINE #3 TAB PO PRN (21:00)
[2016-10-20] MEDS ORDERED: NACL 0.9% 3 ML SYG IV SCH (21:00)
[2016-10-20] MEDS ORDERED: LANOLIN 7 GM TUBE TOP PRN (21:00)
[2016-10-20] MEDS: IBUPROFEN 800 MG TAB PO SCH (22:00)
[2016-10-21] VITALS: BP 125/69; PULSE 65; RESP 18
[2016-10-21] MEDS: OXYTOCIN 30 UNITS/LR 500 ML IV SCH (00:34)
[2016-10-21] MEDS: LACTATED RINGER'S 1,000 ML IV SCH ×2 (03:17→10:56)
[2016-10-21 03:55] VITALS: BP 132/61; PULSE 79; RESP 18
[2016-10-21] MEDS: IBUPROFEN 800 MG TAB PO SCH ×3 (06:00→21:07)
[2016-10-21 08:00] VITALS: BP 132/73; PULSE 80; RESP 18
[2016-10-21 11:11] LABS: ADD SCAN DIFF NO
[2016-10-21 11:14] LABS: BASOPHILS % 0.3 % (0.0-2.0); EOSINOPHILS # 0.1 10^3/ul (0.0-0.5); EOSINOPHILS % 0.5 % (0.0-7.0); HEMATOCRIT 35.5 % (37.0-47.0); HEMOGLOBIN 12.1 g/dl (12.0-16.0); LYMPHOCYTES # 1.2 10^3/ul (0.8-2.9); LYMPHOCYTES % 10.8 % (15.0-51.0); MEAN CORPUSCULAR HEMOGLOBIN 31.3 pg (29.0-33.0); MEAN CORPUSCULAR HGB CONC 34.1 g/dl (32.0-37.0); MEAN CORPUSCULAR VOLUME 91.7 fl (82.0-101.0); MEAN PLATELET VOLUME 9.7 fl (7.4-10.4); MONOCYTE # 0.7 10^3/ul (0.3-0.9); NEUTROPHIL # 9.4 10^3/ul (1.6-7.5); PLATELET COUNT 237 10^3/UL (140-415); RED BLOOD COUNT 3.87 10^6/ul (4.20-5.40); RED CELL DISTRIBUTION WIDTH 13.3 % (11.5-14.5); WHITE BLOOD COUNT 11.4 10^3/ul (4.8-10.8)
[2016-10-21 12:00] VITALS: BP 125/59; PULSE 87; RESP 18
[2016-10-21 16:08] VITALS: BP 118/68; PULSE 80
[2016-10-21 19:50] VITALS: BP 125/80; PULSE 80; RESP 18
[2016-10-22 04:20] VITALS: BP 130/63; PULSE 78; RESP 0
[2016-10-22 08:00] VITALS: BP 126/58; PULSE 83; RESP 17
[2016-10-22] MEDS: IBUPROFEN 800 MG TAB PO SCH ×3 (08:00→22:37)
[2016-10-22] MEDS: LACTATED RINGER'S 1,000 ML IV SCH (12:55)
--- NOTE | 2016-10-22 13:17 | PN ---
Date/Time of Note Date/Time of Note DATE: 10/22/16 TIME: 13:15 OB Subjective Subjective Subjective Ambulated. Breast-feeding. Tolerated regular diet. Has not passed gas yet. Vaginal bleeding decrease in the amount of menses. Denies any dizziness, lightheadedness or any other complaint. Urinated. OB Objective Objective Objective General appearance: Alert and oriented 4, NAD Abdomen: Soft, appropriate tenderness in the section incision. Incision: Clean dry and intact. Extremities: No calf tenderness, no click, 1+ bilateral symmetric edema. Breasts: No evidence of engorgement, mastitis or fissure Hematology - 72 Hrs Test 10/20/16 08:00 10/21/16 10:46 White Blood Count 9.810^3/ul (4.8-10.8) 11.410^3/ul (4.8-10.8) H Red Blood Count 4.0910^6/ul (4.20-5.40) L 3.8710^6/ul (4.20-5.40) L Hemoglobin 12.8g/dl (12.0-16.0) 12.1g/dl (12.0-16.0) Hematocrit 37.2% (37.0-47.0) 35.5% (37.0-47.0) L Mean Corpuscular Volume 91.0fl (82.0-101.0) 91.7fl (82.0-101.0) Mean Corpuscular Hemoglobin 31.3pg (29.0-33.0) 31.3pg (29.0-33.0) Mean Corpuscular Hemoglobin Concent 34.4g/dl (32.0-37.0) 34.1g/dl (32.0-37.0) Red Cell Distribution Width 13.1% (11.5-14.5) 13.3% (11.5-14.5) Platelet Count 91424^3/UL (140-415) 87734^3/UL (140-415) Mean Platelet Volume 9.7fl (7.4-10.4) 9.7fl (7.4-10.4) Neutrophils % 71.9% (39.0-77.0) 82.0% (39.0-77.0) H Lymphocytes % 18.9% (15.0-51.0) 10.8% (15.0-51.0) L Monocytes % 5.7% (0.0-11.0) 6.0% (0.0-11.0) Eosinophils % 2.9% (0.0-7.0) 0.5% (0.0-7.0) Basophils % 0.3% (0.0-2.0) 0.3% (0.0-2.0) Nucleated Red Blood Cells % 0.0/100WBC (0.0-0.0) 0.0/100WBC (0.0-0.0) Neutrophils # 7.010^3/ul (1.6-7.5) 9.410^3/ul (1.6-7.5) H Lymphocytes # 1.810^3/ul (0.8-2.9) 1.210^3/ul (0.8-2.9) Monocytes # 0.610^3/ul (0.3-0.9) 0.710^3/ul (0.3-0.9) Eosinophils # 0.310^3/ul (0.0-0.5) 0.110^3/ul (0.0-0.5) Basophils # 0.010^3/ul (0.0-0.1) 0.010^3/ul (0.0-0.1) Nucleated Red Blood Cells # 0.010^3/ul (0.0-0.0) 0.010^3/ul (0.0-0.0) OB Assessment/Plan Other Assessment: Status post repeat section and BTL Postoperative day #2. Doing well. Awaiting resumption of bowel function. Encourage ambulation Routine postop care VIVIAN ACREY MD Oct 22, 2016 13:17
[2016-10-22] MEDS: OXYCODONE/ACETAMINOPHEN (5/325) TAB PO PRN (13:50)
[2016-10-22 16:30] VITALS: BP 137/60; PULSE 80; RESP 16
[2016-10-22 20:00] VITALS: BP 125/78; PULSE 99; RESP 18
[2016-10-23] MEDS: OXYCODONE/ACETAMINOPHEN (5/325) TAB PO PRN ×2 (03:43→12:15)
[2016-10-23 04:15] VITALS: BP 113/52; PULSE 68; RESP 18
[2016-10-23] MEDS: IBUPROFEN 800 MG TAB PO SCH ×2 (06:00→14:00)
--- NOTE | 2016-10-23 07:37 | DS ---
Date/Time of Note Date/Time of Note DATE: 10/23/16 TIME: 07:36 Discharge Summary Admission/Discharge Info Admit Date/Time Oct 20, 2016 at 06:06 Discharge Date/Time Discharge Diagnosis term preg who had a c/s and btl Patient Condition: Stable Hospital Course unremarkable Home Meds Reported Medications Multivit/Min/Fol Ac/Iron/Pren* ( S*) 1 Tab Tab, 1 TAB PO DAILY, TAB 08/11/16 Primary Care Provider Care Physician No Primary SHARON WAGGONER MD Oct 23, 2016 07:37
--- NOTE | 2016-10-23 07:38 | PD.PPDC ---
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
[2016-10-23 08:30] VITALS: BP_SYST 129; BP_SYST 99; BP_DIAS 55; BP_DIAS 66; PULSE 75; PULSE 81
[2016-10-23] MEDS ORDERED: MEASLES,MUMPS,RUBELLA VACCINE INJ SC* ONE (09:00)
[2016-10-23] MEDS ORDERED: BISACODYL 10 MG SUPP PR ONE (09:00)
[2016-10-23] MEDS ORDERED: DIPHTH/TET/ACEL PERTUSS (ADULT) 0.5 ML VIAL IM* ONE (09:00)
== END 2016-10-23 14:10 | disposition home or self-care (01) | DRG 766 ==
LOC: L-D 10-20 06:06 → PP1 10-20 20:24
PROVIDERS: ADMIT Obstetrics & Gynecology; ATTEND Obstetrics & Gynecology
PROC: 0UB70ZZ Excision of Bilateral Fallopian Tubes, Open Approach (ICD-10-PCS; 2016-10-20)
PROC: 10D00Z1 Extraction of Products of Conception, Low, Open Approach (ICD-10-PCS; principal; 2016-10-20 15:45)
DX: O34.211 Maternal care for low transverse scar from previous cesarean delivery (principal); Z30.2 Encounter for sterilization; Z37.0 Single live birth; Z3A.00 Weeks of gestation of pregnancy not specified
CPT/HCPCS: 85025; 85610; 85730; 86592; 86850; 86900; 86901; 87340; 88302; 90715; 94760; 99464; J0690; J1885; J2274; J2405; J2590; J2765; J7120

== ENCOUNTER 2018-06-23 09:30 | Emergency (ER) | payer MEDICAID ==
[~2018-06-23] VITALS: Wt 90.5 kg
[2018-06-23 09:45] VITALS: BP 121/86; PULSE 102; RESP 22
[2018-06-23] MEDS ORDERED: LORAZEPAM 1 MG TAB PO ONE (11:30)
--- NOTE | 2018-06-23 11:31 | ERD ---
ER Documentation Chief Complaint Chief Complaint PT ANXIOUS, HYPERVENTILATING, NUMBNESS ON FACE, PALPITATIONS HPI 43-year-old female presents with history of worsening headache for the past 3 days. The headache is all over her head. She denies having a history of headaches. States that there is some intermittent dizziness as well. Not taking any treatments. States that she feels cold and because of that she is clicking her mouth. Denies neck stiffness, photophobia, denies fevers, nausea, vomiting. Denies past medical history. Denies allergies. Denies medications. Denies surgeries. Denies alcohol, tobacco, drug use. Up to date on vaccines. ROS All systems reviewed and are negative except as per history of present illness. Medications Home Meds Active Scripts Ibuprofen* (Motrin*) 600 Mg Tab, 600 MG PO Q6 for headache, #30 TAB Prov:ИВАН MARADIAGA 06/23/18 Reported Medications Multivit/Min/Fol Ac/Iron/Pren* ( S*) 1 Tab Tab, 1 TAB PO DAILY, TAB 08/11/16 Allergies Allergies: Coded Allergies: No Known Allergy (Unverified , 10/05/16) PMhx/Soc Medical and Surgical Hx: pt denies Medical Hx, pt denies Surgical Hx Hx Alcohol Use: No Hx Substance Use: No Hx Tobacco Use: No FmHx Family History: No diabetes, No coronary disease, No other Physical Exam Vitals Vital Signs Date Temp Pulse Resp B/P (MAP) Pulse Ox O2 O2 Flow FiO2 Time Delivery Rate 06/23/18 98.4 102 22 121/86 100 09:45 (98) Physical Exam Const: Patient appears anxious and is clicking her teeth repeatedly Head: Atraumatic Eyes: Normal Conjunctiva ENT: Normal External Ears, Nose and Mouth. Neck: Full range of motion. No meningismus. Resp: Clear to auscultation bilaterally Cardio: Regular rate and rhythm, no murmurs Abd: Soft, non tender, non distended. Normal bowel sounds Skin: No petechiae or rashes Back: No midline or flank tenderness Ext: No cyanosis, or edema Neur: Awake and alert. Cranial nerves I through XII intact. Psych: Normal Mood and Affect Neuro: M/S: Alert and oriented Face: EOMI, face and pharynx with normal sensation and function Motor: Normal strength throughout Sensation: Normal sensation throughout Speech: Normal Cerebel: Normal coordination Normal gait Normal finger to nose DTR: 2+ and symmetric upper/lower extremities Result Diagram: 06/23/18 1108 06/23/18 1108 Results 24 hrs Laboratory Tests Test 06/23/18 11:08 White Blood Count 9.1 10^3/ul Red Blood Count 4.75 10^6/ul Hemoglobin 14.1 g/dl Hematocrit 41.5 % Mean Corpuscular Volume 87.4 fl Mean Corpuscular Hemoglobin 29.7 pg Mean Corpuscular Hemoglobin Concent 34.0 g/dl Red Cell Distribution Width 12.6 % Platelet Count 315 10^3/UL Mean Platelet Volume 9.5 fl Immature Granulocytes % 0.300 % Neutrophils % 83.4 % Lymphocytes % 11.0 % Monocytes % 4.9 % Eosinophils % 0.2 % Basophils % 0.2 % Nucleated Red Blood Cells % 0.0 /100WBC Immature Granulocytes # 0.030 10^3/ul Neutrophils # 7.6 10^3/ul Lymphocytes # 1.0 10^3/ul Monocytes # 0.4 10^3/ul Eosinophils # 0.0 10^3/ul Basophils # 0.0 10^3/ul Nucleated Red Blood Cells # 0.0 10^3/ul Sodium Level 141 mmol/L Potassium Level 4.0 mmol/L Chloride Level 106 mmol/L Carbon Dioxide Level 24 mmol/L Anion Gap 11 Blood Urea Nitrogen 14 mg/dl Creatinine 0.74 mg/dl Est Glomerular Filtrat Rate mL/min > 60 mL/min Glucose Level 100 mg/dl Calcium Level 9.1 mg/dl Magnesium Level 1.9 mg/dl Total Bilirubin 0.3 mg/dl Direct Bilirubin 0.00 mg/dl Indirect Bilirubin 0.3 mg/dl Aspartate Amino Transf (AST/SGOT) 22 IU/L Alanine Aminotransferase (ALT/SGPT) 16 IU/L Alkaline Phosphatase 80 IU/L Total Protein 8.3 g/dl Albumin 4.5 g/dl Globulin 3.80 g/dl Albumin/Globulin Ratio 1.18 Current Medications Medications Dose Sig/Jacquie Start Time Status Last (Trade) Ordered Route PRN Stop Time Admin Dose Reason Admin Lorazepam 1 mg ONCE ONCE 06/23/18 DC 06/23/18 (Ativan) PO 11:30 06/23/18 11:55 11:33 Procedures/MDM DIAGNOSTIC IMAGING REPORT Patient: CHRISTOPHER PEÑA : 1975 Age: 43 Sex: F MR #: [id number] DOS: 06/23/18 1052 Ordering MD: ИВАН MARADIAGA Location: [facility] Room/Bed: PROCEDURE: CT brain without contrast CLINICAL INDICATION: Worse headache of life, focal neurologic deficit TECHNIQUE: CT of the brain without contrast was performed on a multidetector CT scanner, with multiplanar reformats. One or more of the following dose redu ction techniques were used: Automated exposure control, adjustment in mA and / or kV according to patient size, use of iterative reconstructive technique. CTDIvol = 38 mGy; DLP = 634 mGy-cm. DICOM images are available. COMPARISON: None available FINDINGS: No acute intracranial hemorrhage is identified. No extra-axial fluid collection is seen. There is no mass effect. No midline shift is identified. There is no hydrocephalus. The ventricles and sulci are appear unremarkable. The density of the brain is unremarkable. Flynn-white junctions appear preserved. Calvarium and skull base are intact. Mastoid air cells and imaged paranasal sinuses grossly clear. IMPRESSION: No acute intracranial pathology identified. RPTAT: VV .Donald Milian MD, MD Date Time Electronically viewed and signed by .Donald Milian MD, on 06/23/2018 11:32 .O/ CC: ИВАН MARADIAGA [id number] EKG: Rate/Rhythm: Normal Sinus Rhythm QRS, ST, T-waves: No changes consistent w/ acute ischemia Impression: No evidence of ischemia or arrhythmia 43-year-old female presents with history of worsening headache for the past 3 days. The headache is all over her head. She denies having a history of headaches. States that there is some intermittent dizziness as well. Not taking any treatments. States that she feels cold and because of that she is clicking her mouth. Denies neck stiffness, photophobia, denies fevers, nausea, vomiting. Denies past medical history. Denies allergies. Denies medications. Denies surgeries. Denies alcohol, tobacco, drug use. Up to date on vaccines. Upon discharge patient stated that her headache resolved and was feeling better. CT was ordered with consent of Dr. Tucker. Results within normal limits. In ad dition all labs were within normal limits. After administering 1 mg of Ativan patient stated that her headache was fine therefore my suspicion is that her focal neuro complaints as well as her headache are caused by anxiety which is also causing heart palpitations. I have low suspicion for intracranial bleed, intracranial mass, CVA, or other emergent condition. Patient discharged with strict ER precautions. Patient advised to follow up with PMD. All questions answered at discharge. Departure Diagnosis: Primary Impression: Anxiety Additional Impression: Headache Headache type: unspecified Headache chronicity pattern: acute headache Intractability: not intractable Qualified Codes: R51 - Headache Condition: Stable ИВАН MARADIAGA Jun 23, 2018 11:31
[2018-06-23] MEDS ORDERED: IBUP-1542 PO (12:11)
== END 2018-06-23 12:27 | disposition home or self-care (01) ==
LOC: FTE 09:30
DX: F41.9 Anxiety disorder, unspecified (principal); R51 Headache; R42 Dizziness and giddiness
CPT/HCPCS: 70450; 80053; 83735; 85025; 93005; Z7610; 36415